=== PATIENT | male | born 1980 | race Caucasian/White ===

== ENCOUNTER → 2017-10-06 12:33 | Outpatient (POV) | payer MEDICARE, MEDICAID, SELFPAY | PROVIDERS: Visit Provider Nurse Practitioner Acute Care | DX: Z00.00 Encounter for general adult medical examination without abnormal findings (principal) ==

== ENCOUNTER 2017-11-17 08:32 | Day surgery (SDC) | payer MEDICARE, MEDICAID, SELFPAY ==
[2017-11-11 15:22] VITALS: BMI 25.8
[2017-11-17] VITALS (9 sets, daily range): BP systolic 108–135; BP diastolic 71–85; PULSE 63–82; RESP 16–18; TEMP 36.7; O2SAT 93–100
--- NOTE | 2017-11-17 09:51 | HMH.PROC ---
[facility] Procedure Note Procedure Note:: Upper Endoscopy Procedure Report: Esophagogastroduodenoscopy with cold biopsies Endoscopost: Felipe Upton II, MD Referring Physician: Gabriel Fields MD/Mervin Negron MD Date of Procedure: November 17, 2017 Equipment: Olympus GIF 180 standard upper endoscope Sedation: Fentanyl 100 mg IV/ Versed 5 mg IV Indications: Mr. Quiroga is a 36-year-old gentleman with epigastric abdominal pain and dyspepsia. He reports some bloating and burping. He reports generalized abdominal discomfort. He has a history of obstipation. He reports no dysphagia. He has a poor historian. His CAT scan of the abdomen and pelvis showed no acute abnormalities but there was some obstipation. His blood work showed normal hemoglobin 15.5 and hematocrit 49.2. Procedure: Prior to the procedure, a history and physical exam was performed, and patient's medications and allergies were reviewed. The risks, benefits and alternatives of the sedation and procedure were discussed with the patient. All questions were answered and informed consent was obtained. The patient was brought to the procedure room. Patient identification and proposed procedure were verified by the physician and the nurse. The patient was placed in a left lateral decubitus position and the scope was passed under direct vision. Throughout the procedure, the patient's blood pressure, pulse, and oxygen saturations were monitored continuously. The upper GI endoscopy was accomplished without difficulty. The patient tolerated the procedure well. Findings: The scope was passed directly into the upper esophagus and advanced to the third portion of the duodenum. The post bulbar duodenum and duodenal bulb were normal with normal mucosa and conniventes. There was mild duodenal lymphoid stasis. The scope was withdrawn through a normal duodenal bulb and pylorus into the stomach. There was very mild linear erythema of the antrum. There was atrophy of the body and fundus consistent with atrophic gastritis. Upon retroflexion there was no hiatal hernia. 2 biopsies were taken in the antrum and along the lesser curvature for histology to rule out gastritis and/or H pylori. Cold biopsies were taken from the body and fundus of the stomach along the greater curvature to rule out atrophic gastritis. The scope was then withdrawn into the esophagus. The remainder of the esophageal mucosa was normal. Impression: 1. Mild chronic atrophic gastritis with mild linear reactive antritis 2. Mild duodenal lymphoid stasis Plan: I do feel that the patient has functional dyspepsia. We will discuss additional treatment options. I would consider continuation of the fiber bowel regimen, dietary measures and Iberogast. I will follow up the biopsies. I would also consider checking iron and B12 levels because of the atrophic gastritis.
--- NOTE | 2017-11-17 09:55 | P.PCN_ITS ---
[facility] Procedure Note Procedure Note:: Upper Endoscopy Procedure Report: Esophagogastroduodenoscopy with cold biopsies Endoscopost: Felipe Upton II, MD Referring Physician: Gabriel Fields MD/Mervin Negron MD Date of Procedure: November 17, 2017 Equipment: Olympus GIF 180 standard upper endoscope Sedation: Fentanyl 100 mg IV/ Versed 5 mg IV Indications: Mr. Quiroga is a 36-year-old gentleman with epigastric abdominal pain and dyspepsia. He reports some bloating and burping. He reports generalized abdominal discomfort. He has a history of obstipation. He reports no dysphagia. He has a poor historian. His CAT scan of the abdomen and pelvis showed no acute abnormalities but there was some obstipation. His blood work showed normal hemoglobin 15.5 and hematocrit 49.2. Procedure: Prior to the procedure, a history and physical exam was performed, and patient' s medications and allergies were reviewed. The risks, benefits and alternatives of the sedation and procedure were discussed with the patient. All questions were answered and informed consent was obtained. The patient was brought to the procedure room. Patient identification and proposed procedure were verified by the physician and the nurse. The patient was placed in a left lateral decubitus position and the scope was passed under direct vision. Throughout the procedure, the patient's blood pressure, pulse, and oxygen saturations were monitored continuously. The upper GI endoscopy was accomplished without difficulty. The patient tolerated the procedure well. Findings: The scope was passed directly into the upper esophagus and advanced to the third portion of the duodenum. The post bulbar duodenum and duodenal bulb were normal with normal mucosa and conniventes. There was mild duodenal lymphoid stasis. The scope was withdrawn through a normal duodenal bulb and pylorus into the stomach. There was very mild linear erythema of the antrum. There was atrophy of the body and fundus consistent with atrophic gastritis. Upon retroflexion there was no hiatal hernia. 2 biopsies were taken in the antrum and along the lesser curvature for histology to rule out gastritis and/ or H pylori. Cold biopsies were taken from the body and fundus of the stomach along the greater curvature to rule out atrophic gastritis. The scope was then withdrawn into the esophagus. The remainder of the esophageal mucosa was normal. Impression: 1. Mild chronic atrophic gastritis with mild linear reactive antritis 2. Mild duodenal lymphoid stasis Plan: I do feel that the patient has functional dyspepsia. We will discuss additional treatment options. I would consider continuation of the fiber bowel regimen, dietary measures and Iberogast. I will follow up the biopsies. I would also consider checking iron and B12 levels because of the atrophic gastritis.
== END 2017-11-17 10:58 | disposition home or self-care (01) ==
LOC: OUTP 08:34
PROVIDERS: PCP Family Medicine; Visit Provider Internal Medicine Gastroenterology
PROC: 0DJ08ZZ Inspection of Upper Intestinal Tract, Via Natural or Artificial Opening Endoscopic (ICD-10-PCS; CPT 43235; principal; 2017-11-17 09:30)
DX: K29.40 Chronic atrophic gastritis without bleeding (principal)
CPT/HCPCS: 43239; 88305; 88342; 99152

== ENCOUNTER 2017-11-25 12:36 | Emergency (ER) | payer MEDICARE, MEDICAID, SELFPAY ==
[2017-11-25 12:48] VITALS: BP 103/72; PULSE 80; RESP 16; TEMP 36.5; O2SAT 100; BMI 25.8
[2017-11-25 13:09] LABS: Microscopic, Urine URINE MICROSCOPIC (MICROSCOPIC)
[2017-11-25 13:13] LABS: Appearance,Urine CLEAR (Clear); Bilirubin,Urine Negative (Negative); Blood, Urine Negative (Negative); Color,Urine YELLOW (Yellow); Glucose,Urine (UA) Negative (Negative); Ketones,Urine Negative (Negative); Leukocyte Esterase,Urine Negative (Negative); Nitrate,Urine Negative (Negative); Protein,Urine Negative (Negative); Specific Gravity, Urine 1.015 (1.005-1.030); Urobilinogen,Urine 0.2 EU/dl (0.2)
--- NOTE | 2017-11-25 13:16 | HMH.EDUROGM ---
ED Disposition Clinical Impression: Urinary frequency Disposition: Home, Self-Care Condition on Discharge: Fair Instructions: DI for Urinary Tract Infection (UTI), DI for Urinary Tract Infection in Children Additional Instructions: 1- drink plenty of water. 2- macrobid 100 mg po bid x 10 days 3- follow up with Dr Hay in AM 4- follow up with Dr Delcid the urologist in 1-2 weeks. Prescriptions: Nitrofurantoin Monohyd/M-Cryst [Macrobid 100 mg Capsule] 100 mg PO Q12H #20 cap Referrals: Gilson Hay MD [Primary Care Provider] - Jerzy Antoine MD [Staff Physician] - - Critical Care Critical Care Time: No Attestation: On 11/25/17, the high probability of a clinically significant, sudden or life threatening deterioration of the following system(s) required my full and direct attention, intervention and personal management. The time I documented below is in addition to time spent performing reported procedures but includes the following listed in this critical care notation. Medical Decision Making Vital Signs: 11/25/17 12:48 Temperature 97.7 F Temperature Source Oral Pulse Rate [Right Brachial] 80 Respiratory Rate 16 Blood Pressure [Right Arm] 103/72 Blood Pressure Mean [Right Arm] 82 Blood Pressure Source [Right Arm] Automatic Cuff Blood Pressure Position [Right Arm] Sitting 02 Sat by Pulse Oximetry 100 - Lab Data Lab Results 11/25/17 13:05: Urine Color Yellow, Urine Appearance Clear, Urine pH 7.0, Ur Specific [place] 1.015, Urine Protein Negative, Urine Glucose (UA) Negative, Urine Ketones Negative, Urine Blood Negative, Urine Nitrate Negative, Urine Bilirubin Negative, Urine Urobilinogen 0.2, Ur Leukocyte Esterase Negative, Urine WBC Occasional, Ur Squamous Epith Cells Occasional, Urine Bacteria 1+ 11/25/17 13:15: WBC 7.3, RBC 4.95, Hgb 14.8, Hct 45.2, MCV 91.4, MCH 30.0, MCHC 32.8, RDW 12.6, Plt Count 239, MPV 8.1, Neut % (Auto) 67.3, Lymph % (Auto) 26.0, [place] % (Auto) 5.5, Eos % (Auto) 1.1, Baso % (Auto) 0.1, Neut # (Auto) 4.9, Lymph # (Auto) 1.9, [place] # (Auto) 0.4, Eos # (Auto) 0.1, Baso # (Auto) 0.0 11/25/17 13:15: Sodium 139, Potassium 4.1, Chloride 106, Carbon Dioxide 27, Anion Gap 10.1, BUN 16, Creatinine 0.74, Estimated Creat Clear 159, Estimated GFR 120, Est GFR ( Amer) 145, Glucose 96, Calcium 8.3 L, Magnesium 1.5, Total Bilirubin 0.4, AST 15, ALT 19, Alkaline Phosphatase 119 H, Total Protein 7.9, Albumin 4.0, Globulin 3.9 H, Albumin/Globulin Ratio 1.0 L 11/25/17 13:15: Hemoglobin A1c 5.5 Result diagrams: 11/25/17 13:15 11/25/17 13:15 Orders (Tests/Meds): ORDERS Category Date Time Status Urine Culture Routine Micro 11/25/17 13:49 Ordered - Marco Inquiry Pt receiving controlled substance: No Marco was queried for this patient: No Medical Decision Making Narrative: Patient had normal vitals benign clinical examination and normal labs including a hemoglobin A1c of 5.5. [address] Woods for advise an evaluation. Dr. Antoine recommended antibiotic therapy and follow-up in 1-2 weeks with him. Male Urogenital HPI - General Chief complaint: Urogenital-Male Stated complaint: back pain,urinates a lot Mode of Arrival: Ambulatory Limitations: No Limitations Description of Symptoms (Recalled from ER Triage Doc. by RN): I got a kidney infection burning when urinating - History of Present Illness HPI Narrative: 36 years old white male patient of Dr. Hay, he presented to the ED complaining of increased frequency of urination at nighttime. 5 times for the past month. He denies having dysuria hematuria or flank pain. Denies having abdominal pain vomiting diarrhea. He denies having fever or chills. He seen Dr. Hay last 2 months of. Relieving factors: none Exacerbating factors: none - Related Data Sexually active: No Home Medications Medication Instructions Recorded Confirmed Buspirone HCl [Buspar 10mg tablet] 10 mg PO
--- NOTE | 2017-11-25 13:19 | ED_ITS ---
ED Disposition Clinical Impression: Urinary frequency Disposition: Home, Self-Care Condition on Discharge: Fair Instructions: DI for Urinary Tract Infection (UTI), DI for Urinary Tract Infection in Children Additional Instructions: 1- drink plenty of water. 2- macrobid 100 mg po bid x 10 days 3- follow up with Dr Hay in AM 4- follow up with Dr Delcid the urologist in 1-2 weeks. Prescriptions: Nitrofurantoin Monohyd/M-Cryst [Macrobid 100 mg Capsule] 100 mg PO Q12H #20 cap Referrals: Gilson Hay MD [Primary Care Provider] - Jerzy Antoine MD [Staff Physician] - - Critical Care Critical Care Time: No Attestation: On 11/25/17, the high probability of a clinically significant, sudden or life threatening deterioration of the following system(s) required my full and direct attention, intervention and personal management. The time I documented below is in addition to time spent performing reported procedures but includes the following listed in this critical care notation. Medical Decision Making Vital Signs: 11/25/17 12:48 Temperature 97.7 F Temperature Source Oral Pulse Rate [Right Brachial] 80 Respiratory Rate 16 Blood Pressure [Right Arm] 103/72 Blood Pressure Mean [Right Arm] 82 Blood Pressure Source [Right Arm] Automatic Cuff Blood Pressure Position [Right Arm] Sitting 02 Sat by Pulse Oximetry 100 - Lab Data Lab Results 11/25/17 13:05: Urine Color Yellow, Urine Appearance Clear, Urine pH 7.0, Ur Specific [place] 1.015, Urine Protein Negative, Urine Glucose (UA) Negative, Urine Ketones Negative, Urine Blood Negative, Urine Nitrate Negative, Urine Bilirubin Negative, Urine Urobilinogen 0.2, Ur Leukocyte Esterase Negative, Urine WBC Occasional, Ur Squamous Epith Cells Occasional, Urine Bacteria 1+ 11/25/17 13:15: WBC 7.3, RBC 4.95, Hgb 14.8, Hct 45.2, MCV 91.4, MCH 30.0, MCHC 32.8, RDW 12.6, Plt Count 239, MPV 8.1, Neut % (Auto) 67.3, Lymph % (Auto) 26.0 , [place] % (Auto) 5.5, Eos % (Auto) 1.1, Baso % (Auto) 0.1, Neut # (Auto) 4.9, Lymph # (Auto) 1.9, [place] # (Auto) 0.4, Eos # (Auto) 0.1, Baso # (Auto) 0.0 11/25/17 13:15: Sodium 139, Potassium 4.1, Chloride 106, Carbon Dioxide 27, Anion Gap 10.1, BUN 16, Creatinine 0.74, Estimated Creat Clear 159, Estimated GFR 120, Est GFR ( Amer) 145, Glucose 96, Calcium 8.3 L, Magnesium 1.5, Total Bilirubin 0.4, AST 15, ALT 19, Alkaline Phosphatase 119 H, Total Protein 7.9, Albumin 4.0, Globulin 3.9 H, Albumin/Globulin Ratio 1.0 L 11/25/17 13:15: Hemoglobin A1c 5.5 Result diagrams: 11/25/17 13:15 11/25/17 13:15 Orders (Tests/Meds): ORDERS Category Date Time Status Urine Culture Routine Micro 11/25/17 13:49 Ordered - Marco Inquiry Pt receiving controlled substance: No Marco was queried for this patient: No Medical Decision Making Narrative: Patient had normal vitals benign clinical examination and normal labs including a hemoglobin A1c of 5.5. [address] Woods for advise an evaluation. Dr. Antoine recommended antibiotic therapy and follow-up in 1-2 weeks with him. Male Urogenital HPI - General Chief complaint: Urogenital-Male Stated complaint: back pain,urinates a lot Mode of Arrival: Ambulatory Limitations: No Limitations Description of Symptoms (Recalled from ER Triage Doc. by RN): I got a kidney infection burning when urinating - History of Present Illness HPI Narrative: 36 years
[2017-11-25 13:24] LABS: Basophils % 0.1 % (0.1-2.0); Eosinophils # 0.1 K/mm3 (0.0-0.4); Eosinophils % 1.1 % (0.1-12.0); Hematocrit 45.2 % (42.0-52.0); Hemoglobin 14.8 g/dL (14.1-18.0); Lymphocytes # 1.9 K/mm3 (0.7-4.5); Mean Corpuscular HGB Conc 32.8 g/dL (31.8-35.4); Mean Corpuscular Volume 91.4 fl (80-94); Mean Platelet Volume 8.1 fl (7.4-10.4); Monocytes # 0.4 K/mm3 (0.1-1.0); Monocytes % 5.5 % (1.7-9.3); Neutrophils # 4.9 K/mm3 (1.8-7.8); Neutrophils % 67.3 % (37.0-80.0); Platelet Count 239 K/mm3 (142-424); Red Blood Count 4.95 M/mm3 (4.60-6.20); Red Cell Distribution Width 12.6 % (11.5-17.5); White Blood Count 7.3 K/mm3 (4.8-10.8)
[2017-11-25 13:32] LABS: Bacteria,Urine 1+ /lpf; Squamous Epithelial Cell,Urine Occasional #/hpf (0-5); WBC,Urine Occasional #/hpf (0-3)
[2017-11-25 13:37] LABS: Alanine Aminotransferase 19 U/L (12-78); Alkaline Phosphatase 119 U/L (46-116); Anion Gap 10.1 mEq/L (5-15); Aspartate Amino Transferase 15 U/L (15-37); Bilirubin,Total 0.4 mg/dL (0.2-1.0); Blood Urea Nitrogen 16 mg/dL (7-18); Calcium 8.3 mg/dL (8.5-10.1); Carbon Dioxide 27 mmol/L (21.0-32.0); Chloride 106 mmol/L (98-107); Creatinine Clearance Estimated 159 mL/min (0-300); Creatinine,Serum 0.74 mg/dL (0.70-1.30); Estimated Glomerular Filt Rate 120 ml/min (>60); GFR (African American) 145 ML/MIN (>60); Globulin 3.9 gm/dl (1.3-3.2); Glucose 96 mg/dL (74-106); Magnesium 1.5 mg/dL (1.4-2.2); Potassium 4.1 mmoL/L (3.5-5.1); Sodium 139 mmol/L (136-145); Total Protein,Serum 7.9 gm/dL (6.4-8.2)
[2017-11-25 13:39] LABS: Hemoglobin A1C 5.5 % (0.0-7.0)
[2017-11-25 14:22] VITALS: BP 129/83; PULSE 70; RESP 18; TEMP 36.7; O2SAT 96
== END 2017-11-25 14:23 | disposition home or self-care (01) ==
PROVIDERS: Emergency Provider Emergency Medicine; PCP Family Medicine
DX: R35.0 Frequency of micturition (principal); F17.210 Nicotine dependence, cigarettes, uncomplicated
CPT/HCPCS: 80053; 81001; 83036; 83735; 85025; 87086; 99282

== ENCOUNTER 2017-11-26 13:52 | Emergency (ER) | payer MEDICARE, MEDICAID, SELFPAY ==
[2017-11-26 14:02] VITALS: BP 140/78; PULSE 112; RESP 20; TEMP 36.8; O2SAT 98; BMI 21.9
--- NOTE | 2017-11-26 14:44 | HMH.EDUTC ---
[facility] [place] Clinical Impression: Diarrhea Qualifiers: Diarrhea type: unspecified type Qualified Code(s): R19.7 - Diarrhea, unspecified Disposition: Home, Self-Care Condition on Discharge: Good Instructions: Diarrhea Additional Instructions: ? Drink extra fluids with and between meals. If you have difficulty drinking, try very small amounts of water or suck on ice chips. ? Avoid fruit juices, as these do not replace minerals and can actually increase diarrhea. ? Children and adults can use sports drinks to replenish electrolytes. Younger children and infants should use products formulated for children, like oral rehydration solutions. ? Eat food in small amounts and let your stomach recover. ? Get lots of rest. You may feel tired or weak. ? Check with your doctor before taking medications or giving them to children. Never give aspirin to children or teenagers with a viral illness. This can cause Farshad syndrome, a potentially life-threatening condition. [place] diet make sure to replace fluids lost with diarrhea by drinking water, gatoraid or poweraid Prescriptions: Dicyclomine HCl [Bentyl 10mg capsule] 10 mg PO QID #20 cap Referrals: Gilson Hay MD [Primary Care Provider] - Forms: Work/School Release Time of Disposition: 15:19 Medical Decision Making - Medical Records Medical records reviewed: Yes: I reviewed the patient's medical records. Vital Signs: 11/26/17 14:02 Temperature 98.2 F Temperature Source Temporal Artery Scan Pulse Rate [Right] 112 H Respiratory Rate 20 Blood Pressure [Right Arm] 140/78 Blood Pressure Mean [Right Arm] 98 Blood Pressure Position [Right Arm] Sitting 02 Sat by Pulse Oximetry 98 Oxygen Delivery Method Room Air Orders (Tests/Meds): ED MEDICATIONS Discontinued Medications Generic Name Dose Route Start Last Admin Trade Name Freq PRN Reason Stop Dose Admin Dicyclomine HCl 10 mg 11/26/17 14:45 11/26/17 14:55 Bentyl 10mg Capsule PO 11/26/17 14:46 10 mg ONCE ONE Administration - Marco Inquiry Pt receiving controlled substance: No Marco was queried for this patient: No - Reevaluation(s) Time: 15:14 Reevaluation #1: Patient state that Bentyl helped with cramping and no longer having the cramping feeling State that he felt much better and ready to go home, no eppisodes of diarrhea since arrival [facility] [place] - General Stated complaint: stomach pain Mode of Arrival: Ambulatory Source of Information: Patient Limitations: No Limitations Description of Symptoms (Recalled from Triage Doc. by RN): ABD PAIN, DIARRHEA HEENT Symptoms (Recalled from RN notes): No Resp Symptoms (Recalled from RN notes): No Skin Symptoms (Recalled from RN notes): No MS Symptoms (Recalled from RN notes): No Functional Status (Recalled from RN notes): N - History of Present Illness Provider Complaint: Patient state that he woke up this morning having abdominal cramps and diarrhea State that he has had several eppisodes of diarrhea today State that at this time he has not had any vomiting. State that not having abdominal pain but having cramping just before he has diarrhea - Related Data Home Medications Medication Instructions Recorded Confirmed Buspirone HCl [Buspar 10mg tablet] 10 mg PO DAILY 11/25/17 11/25/17 Metoclopramide HCl [Reglan 5mg 5 mg PO ACHS 11/25/17 11/25/17 Tablet] Previous Rx's Medication Instructions Recorded Nitrofurantoin Monohyd/M-Cryst 100 mg PO Q12H #20 cap 11/25/17 [Macrobid 100 mg Capsule] Dicyclomine HCl [Bentyl 10mg 10 mg PO QID #20 cap 11/26/17 capsule] Allergies Allergy/AdvReac Type Severity Reaction Status Date / Time No Known Allergies Allergy Verified 11/11/17 15:23 - Worker's Comp Is this a Worker's Comp case?: No [facility] History I have reviewed the patient's past medical history: Yes 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: Denies:: Diabetes Mellitus Type 1, Diabetes Mellitus Type 2, Internal Pacemaker, Lung Disease
--- NOTE | 2017-11-26 14:48 | ED_ITS ---
[facility] [place] Disposition Clinical Impression: Diarrhea Qualifiers: Diarrhea type: unspecified type Qualified Code(s): R19.7 - Diarrhea, unspecified Disposition: Home, Self-Care Condition on Discharge: Good Instructions: Diarrhea Additional Instructions: ? Drink extra fluids with and between meals. If you have difficulty drinking, try very small amounts of water or suck on ice chips. ? Avoid fruit juices, as these do not replace minerals and can actually increase diarrhea. ? Children and adults can use sports drinks to replenish electrolytes. Younger children and infants should use products formulated for children, like oral rehydration solutions. ? Eat food in small amounts and let your stomach recover. ? Get lots of rest. You may feel tired or weak. ? Check with your doctor before taking medications or giving them to children. Never give aspirin to children or teenagers with a viral illness. This can cause [place]?s syndrome, a potentially life-threatening condition. [place] diet make sure to replace fluids lost with diarrhea by drinking water, gatoraid or poweraid Prescriptions: Dicyclomine HCl [Bentyl 10mg capsule] 10 mg PO QID #20 cap Referrals: Gilson Hay MD [Primary Care Provider] - Forms: Work/School Release Time of Disposition: 15:19 Medical Decision Making - Medical Records Medical records reviewed: Yes: I reviewed the patient's medical records. Vital Signs: 11/26/17 14:02 Temperature 98.2 F Temperature Source Temporal Artery Scan Pulse Rate [Right] 112 H Respiratory Rate 20 Blood Pressure [Right Arm] 140/78 Blood Pressure Mean [Right Arm] 98 Blood Pressure Position [Right Arm] Sitting 02 Sat by Pulse Oximetry 98 Oxygen Delivery Method Room Air Orders (Tests/Meds): ED MEDICATIONS Discontinued Medications Generic Name Dose Route Start Last Admin Trade Name Freq PRN Reason Stop Dose Admin Dicyclomine HCl 10 mg 11/26/17 14:45 11/26/17 14:55 Bentyl 10mg Capsule PO 11/26/17 14:46 10 mg ONCE ONE Administration - Marco Inquiry Pt receiving controlled substance: No Marco was queried for this patient: No - Reevaluation(s) Time: 15:14 Reevaluation #1: Patient state that Bentyl helped with cramping and no longer having the cramping feeling State that he felt much better and ready to go home, no eppisodes of diarrhea since arrival [facility] [place] HPI - General Stated complaint: stomach pain Mode of Arrival: Ambulatory Source of Information: Patient Limitations: No Limitations Description of Symptoms (Recalled from Triage Doc. by RN): ABD PAIN, DIARRHEA HEENT Symptoms (Recalled from RN notes): No Resp Symptoms (Recalled from RN notes): No Skin Symptoms (Recalled from RN notes): No MS Symptoms (Recalled from RN notes): No Functional Status (Recalled from RN notes): N - History of Present Illness Provider Complaint: Patient state that he woke up this morning having abdominal cramps and diarrhea State that he has had several eppisodes of diarrhea today State that at this time he has not had any vomiting. State that not having abdominal pain but having cramping just before he has diarrhea - Related Data Home Medications Medication Instructions Recorded Confirmed Buspirone HCl [Buspar 10mg tablet] 10 mg PO DAILY 11/25/17 11/25/17 Metoclopramide HCl [Reglan 5mg 5 mg PO ACHS 11/25/17 11/25/17
[2017-11-26 15:27] VITALS: BP 142/88; PULSE 100; RESP 20; TEMP 36.8
== END 2017-11-26 15:28 | disposition home or self-care (01) ==
PROVIDERS: Emergency Provider Nurse Practitioner; PCP Family Medicine
DX: R19.7 Diarrhea, unspecified (principal); R10.9 Unspecified abdominal pain
CPT/HCPCS: 99202

== ENCOUNTER 2017-12-02 14:12 | Emergency (ER) | payer MEDICARE, MEDICAID, SELFPAY ==
[2017-12-02 14:31] VITALS: BP 128/81; PULSE 90; RESP 20; TEMP 36.6; O2SAT 100
--- NOTE | 2017-12-02 14:54 | HMH.EDUTC ---
[facility] [place] Clinical Impression: Stuffy and runny nose Disposition: Home, Self-Care Condition on Discharge: Good Instructions: Common Cold, Allergic Rhinitis Additional Instructions: Follow up with family doctor if no improvement or worsening of symptoms in 12-24 hours Return if needed Continue on medication that you was prescribed for UTI Over the counter Motrin or Tylenol as needed for fever or pain Go straight to ER if any life threatening symptoms such as short of air, chest pain etc Prescriptions: Fluticasone Propionate [Flonase 50mcg nasal spray 16gm] 2 spr NS DAILY #1 bottle Referrals: Gilson Hay MD [Primary Care Provider] - As needed Time of Disposition: 15:32 Medical Decision Making - Medical Records Medical records reviewed: Yes: I reviewed the patient's medical records. Vital Signs: 12/02/17 14:31 12/02/17 15:08 Temperature 97.8 F 97.8 F Temperature Source Temporal Artery Scan Pulse Rate 90 Pulse Rate [Right] 90 Respiratory Rate 20 20 Blood Pressure 128/81 Blood Pressure [Right Arm] 128/81 Blood Pressure Mean [Right Arm] 96 Blood Pressure Source [Right Arm] Automatic Cuff Blood Pressure Position [Right Arm] Sitting 02 Sat by Pulse Oximetry 100 Oxygen Delivery Method Room Air - Lab Data Lab Results 12/02/17 14:54: Influenza Type A Ag Negative, Influenza Type B Ag Negative - Marco Inquiry Pt receiving controlled substance: No Marco was queried for this patient: No - Reevaluation(s) Time: 15:28 Reevaluation #1: Patient no changes no distress flu test negative Patient currently on Macrobid for UTI patient educated on flu symptoms and advised to follow up with family doctor if no improvement or worsening of symptoms [facility] [place] - General Stated complaint: congested soa Mode of Arrival: Ambulatory Source of Information: Patient Limitations: No Limitations Description of Symptoms (Recalled from Triage Doc. by RN): STATES HE HAS BRONCHITIS, SEEN IN ER YESTERDAY HEENT Symptoms (Recalled from RN notes): Yes Resp Symptoms (Recalled from RN notes): No Skin Symptoms (Recalled from RN notes): No MS Symptoms (Recalled from RN notes): No Functional Status (Recalled from RN notes): N - History of Present Illness Provider Complaint: Patient state that he thinks he has bronchitits. State that he is on medicine right now for UTI state that now he is having a runny nose and feels like he has had a fever but not sure because he hasn't checked it States that he wanted to come in and get checked state that he has a little cough but not coughing anything up denies chest congestion, denies soa - Related Data Home Medications Medication Instructions Recorded Confirmed Buspirone HCl [Buspar 10mg tablet] 10 mg PO DAILY 11/25/17 11/25/17 Metoclopramide HCl [Reglan 5mg 5 mg PO ACHS 11/25/17 11/25/17 Tablet] Previous Rx's Medication Instructions Recorded Nitrofurantoin Monohyd/M-Cryst 100 mg PO Q12H #20 cap 11/25/17 [Macrobid 100 mg Capsule] Dicyclomine HCl [Bentyl 10mg 10 mg PO QID #20 cap 11/26/17 capsule] Fluticasone Propionate [Flonase 2 spr NS DAILY #1 bottle 12/02/17 50mcg nasal spray 16gm] Allergies Allergy/AdvReac Type Severity Reaction Status Date / Time Penicillins Allergy Verified 12/02/17 14:35 - Worker's Comp Is this a Worker's Comp case?: No [facility] History I have reviewed the patient's past medical history: Yes 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: Denies:: Diabetes Mellitus Type 1, Diabetes Mellitus Type 2, Internal Pacemaker, Lung Disease, Seizures Comment: NONE Other Surgeries: Yes: Other (LEFT HAND). No: Pacemaker Amputation: No Fractures: No - Social History Smoking Status: Current every day smoker Tobacco Type: cigarettes # Packs/Day (cigarettes): 1 Alcohol Intake: never Substance Use Type: denies use Occupational Status: employed - Psychiatric History Expresses thoughts of harming self/others: None Suicide Plan Descriptio
[2017-12-02 15:08] VITALS: BP 128/81; PULSE 90; RESP 20; TEMP 36.6
[2017-12-02 15:23] LABS: UTC Influenza A Antigen Negative (Negative); UTC Influenza B Antigen Negative (Negative)
== END 2017-12-02 16:01 | disposition home or self-care (01) ==
PROVIDERS: Emergency Provider Nurse Practitioner; PCP Family Medicine
DX: J34.89 Other specified disorders of nose and nasal sinuses (principal); F17.210 Nicotine dependence, cigarettes, uncomplicated
CPT/HCPCS: 87804; 99202

== ENCOUNTER → 2018-02-09 09:18 | Outpatient (POV) | payer MEDICARE, MEDICAID, SELFPAY | PROVIDERS: Visit Provider Nurse Practitioner Acute Care | DX: Z00.00 Encounter for general adult medical examination without abnormal findings (principal) ==

== ENCOUNTER → 2018-06-10 14:26 | Outpatient (CLI) | payer MEDICARE, MEDICAID, SELFPAY ==
--- NOTE | 2018-06-10 14:35 | XR_ITS ---
XR ankle RT min 3V HISTORY: ITS.REASON: RT ANKLE SPRAIN ORDERING PHYSICIAN: SAUMYA Sifuentes PATIENT AGE: 37 years Comparison: None FINDINGS: No fracture or dislocation. No lytic or blastic change. There is normal mineralization.. The joint spaces are well-preserved. No significant degenerative/arthritic changes. No erosive changes evident. IMPRESSION: Negative ankle, no acute finding
== END ==
PROVIDERS: PCP Physician Assistant; Visit Provider Physician Assistant
DX: S93.401A Sprain of unspecified ligament of right ankle, initial encounter (principal)
CPT/HCPCS: 73610

== ENCOUNTER → 2018-07-23 10:39 | Outpatient (CLI) | payer MEDICARE, MEDICAID, SELFPAY ==
--- NOTE | 2018-07-23 10:44 | XR_ITS ---
XR foot wt bearing RT 3V HISTORY: ITS.REASON: pain ORDERING PHYSICIAN: Virginia Salmeron DPM PATIENT AGE: 37 years COMPARISON: None FINDINGS: There is mild hallux valgus and minimal pes planus. No fracture or dislocation or other significant anomalies evident. Mild soft tissue swelling noted at the medial aspect of the first metatarsophalangeal joint. IMPRESSION: Mild hallux valgus with mild pes planus
--- NOTE | 2018-07-23 10:44 | XR_ITS ---
XR foot wt bearing LT 3V HISTORY: ITS.REASON: pain ORDERING PHYSICIAN: Virginia Salmeron DPM PATIENT AGE: 37 years COMPARISON: 11/25/2016 FINDINGS: There is minimal hallux valgus with mild soft tissue swelling medially at the first metatarsophalangeal joint. There is flattening of the head of the second metatarsal as previously described. Borderline pes planus.. The joint spaces are well-preserved. No significant degenerative/arthritic changes. No erosive changes evident. IMPRESSION: Mild hallux valgus and borderline pes planus. No change flattened appearance of the head of the second metatarsal
== END ==
PROVIDERS: PCP Family Medicine; Visit Provider Podiatrist
DX: M79.673 Pain in unspecified foot (principal)
CPT/HCPCS: 73630

== ENCOUNTER → 2020-05-25 13:42 | Outpatient (CLI) | payer MEDICARE, SELFPAY | PROVIDERS: Visit Provider Family Medicine | DX: J06.9 Acute upper respiratory infection, unspecified (principal) ==

== ENCOUNTER → 2020-05-25 14:31 | Outpatient (CLI) | payer MEDICARE, OTHER, SELFPAY ==
--- NOTE | 2020-05-25 14:43 | XR_ITS ---
PROCEDURE: XR CHEST PORTABLE CLINICAL HISTORY: COVID TESTING COMPARISON: CR CXR CHEST(2 VIEWS-NOT PORTABLE) from 01/23/2016 CR CXR CHEST(2 VIEWS-NOT PORTABLE) from 03/06/2016 CR CXR CHEST(2 VIEWS-NOT PORTABLE) from 08/30/2016 FINDINGS: Mild cardiomegaly without failure. The lungs are clear without infiltrates, suspicious nodules, or pleural effusions. No acute bony abnormalities. IMPRESSION: No acute findings. Dictated by: Caesar Lucero MD 05/25/2020 17:03 Caesar Lucero MD in [place] 05/25/2020 17:03
[2020-05-25 15:25] LABS: Basophils % 0.2 % (0.1-2.0); Eosinophils # 0.1 K/mm3 (0.0-0.4); Eosinophils % 1.4 % (0.1-12.0); Hematocrit 47.9 % (42.0-52.0); Hemoglobin 16.1 g/dL (14.1-18.0); Lymphocytes # 1.6 K/mm3 (0.7-4.5); Lymphocytes % 21.2 % (10-50); Mean Corpuscular HGB Conc 33.5 g/dL (31.8-35.4); Mean Corpuscular Hemoglobin 31.3 pg (27.0-31.2); Mean Corpuscular Volume 93.4 fl (80-94); Mean Platelet Volume 8.4 fl (7.4-10.4); Monocytes # 0.4 K/mm3 (0.1-1.0); Monocytes % 4.5 % (1.7-9.3); Neutrophils # 5.6 K/mm3 (1.8-7.8); Neutrophils % 72.8 % (37.0-80.0); Platelet Count 242 K/mm3 (142-424); Red Blood Count 5.13 M/mm3 (4.60-6.20); Red Cell Distribution Width 13.2 % (11.5-17.5); White Blood Count 7.7 K/mm3 (4.8-10.8)
[2020-05-30 12:35] LABS: Covid-19 Nasal PCR Sendout Lex NOT DETECTED
== END ==
PROVIDERS: PCP Physician Assistant; Visit Provider Physician Assistant
DX: Z03.818 Encounter for observation for suspected exposure to other biological agents ruled out (principal)
CPT/HCPCS: 36415; 71045; 85025; U0004

== ENCOUNTER → 2020-12-19 16:16 | Outpatient (CLI) | payer MEDICARE, OTHER, SELFPAY ==
--- NOTE | 2020-12-19 16:24 | XR_ITS ---
PROCEDURE: XR FOOT WT BEARING LT 3V CLINICAL INDICATION: pain COMPARISON: CR FTR3 FOOT-RT-3 VIEWS from 12/21/2015 CR FTL3 FOOT-LT-3 VIEWS from 11/25/2016 CR FTWBR3 XR foot wt bearing RT 3V from 07/23/2018 CR FTWBL3 XR foot wt bearing LT 3V from 07/23/2018 FINDINGS: There is mild hallux valgus with minimal osteoarthritic change at the 1st MTP joint. 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 Pes planus. No acute fracture or dislocation. Other findings:None. 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
--- NOTE | 2020-12-19 16:24 | XR_ITS ---
PROCEDURE: XR FOOT WT BEARING RT 3V CLINICAL INDICATION: pain COMPARISON: CR FTR3 FOOT-RT-3 VIEWS from 12/21/2015 CR FTL3 FOOT-LT-3 VIEWS from 11/25/2016 CR FTWBR3 XR foot wt bearing RT 3V from 07/23/2018 CR FTWBL3 XR foot wt bearing LT 3V from 07/23/2018 FINDINGS: No fracture or dislocation. No lytic or blastic change. There is normal mineralization. Mild hallux valgus with mild bunion formation at the distal aspect of the 1st metatarsal. Other findings:Pes planus IMPRESSION: Overall no significant change pes planus and mild hallux valgus with bunion formation Dictated by: Caesar Lucero MD 12/19/2020 18:26 Caesar Lucero MD in [place] 12/19/2020 18:26
== END ==
PROVIDERS: PCP Internal Medicine Adolescent Medicine; Visit Provider Podiatrist
DX: M19.071 Primary osteoarthritis, right ankle and foot (principal); M19.072 Primary osteoarthritis, left ankle and foot; M77.41 Metatarsalgia, right foot; M77.42 Metatarsalgia, left foot
CPT/HCPCS: 73630

== ENCOUNTER 2021-04-02 14:30 | Outpatient (RCR) | payer MEDICARE, OTHER, SELFPAY | END 2021-04-02 14:35 | disposition home or self-care (01) | LOC: PT 14:30 | PROVIDERS: PCP Internal Medicine Adolescent Medicine; Visit Provider Podiatrist | DX: M79.671 Pain in right foot (principal); M79.672 Pain in left foot; M25.571 Pain in right ankle and joints of right foot; M25.572 Pain in left ankle and joints of left foot | CPT/HCPCS: 97163 ==

== ENCOUNTER 2021-09-10 14:06 | Emergency (ER) | payer MEDICARE, OTHER, SELFPAY ==
[2021-09-10 15:44] VITALS: BP 0/0; PULSE 0; RESP 0; TEMP -17.7; TEMP 0
== END 2021-09-10 15:46 | disposition left against medical advice (07) ==
LOC: UTC 14:08
PROVIDERS: Emergency Provider Nurse Practitioner Family; PCP Internal Medicine Adolescent Medicine
DX: Z53.21 Procedure and treatment not carried out due to patient leaving prior to being seen by health care provider (principal)

== ENCOUNTER 2021-09-20 14:31 | Emergency (ER) | payer MEDICARE, OTHER, SELFPAY ==
[2021-09-20 14:33] VITALS: BP 142/94; PULSE 99; RESP 18; TEMP 37.1; O2SAT 99; BMI 27.6
--- NOTE | 2021-09-20 14:51 | XR_ITS ---
PROCEDURE: XR KNEE LT 3V CLINICAL INDICATION: pain COMPARISON: No exams were available for comparison FINDINGS: No fracture or dislocation. No lytic or blastic change. There is normal mineralization. The joint spaces are well-preserved. No significant degenerative/arthritic changes. No erosive changes evident. Other findings:Small metallic density is present along the dorsal aspect of the distal thigh within the soft tissues IMPRESSION: Negative knee. 2 mm metallic density within the subcutaneous tissues of the posterior distal Dictated by: Caesar Lucero MD 09/20/2021 15:14 Caesar Lucero MD in [place] 09/20/2021 15:14
--- NOTE | 2021-09-20 15:31 | HMH.EDGENADL ---
ED Disposition Clinical Impression: Left knee pain Qualifiers: Chronicity: acute Qualified Code(s): M25.562 - Pain in left knee Disposition: Home, Self-Care Condition on Discharge: Good Instructions: DI for Knee Pain Additional Instructions: Ibuprofen for pain. Call your primary care doctor for follow-up. Prescriptions: Ibuprofen [Ibuprofen 800mg Tablet] 800 mg PO Q8HP PRN #15 tab PRN Reason: Moderate Pain Transmission Status: Pending to [facility] #[id number] Referrals: Pedro Fields MD [Primary Care Provider] - - Critical Care Critical Care Time: No Attestation: On 09/20/21, the high probability of a clinically significant, sudden or life threatening deterioration of the following system(s) required my full and direct attention, intervention and personal management. The time I documented below is in addition to time spent performing reported procedures but includes the following listed in this critical care notation. Medical Decision Making - Marco Inquiry Pt receiving controlled substance: No Vital Signs: 09/20/21 14:33 Temperature 98.7 F Temperature Source Oral Pulse Rate [Left Radial] 99 H Respiratory Rate 18 Blood Pressure [Right Arm] 142/94 H Blood Pressure Mean [Right Arm] 110 Blood Pressure Source [Right Arm] Automatic Cuff Blood Pressure Position [Right Arm] Sitting 02 Sat by Pulse Oximetry 99 Oxygen Delivery Method Room Air - Radiology Data #1 Image(s): Knee Image Reviewed: Yes I reviewed the patient's radiology image, Yes I have reviewed radiologist's interpretation PROCEDURE: XR KNEE LT 3V CLINICAL INDICATION: pain COMPARISON: No exams were available for comparison FINDINGS: No fracture or dislocation. No lytic or blastic change. There is normal mineralization. The joint spaces are well-preserved. No significant degenerative/arthritic changes. No erosive changes evident. Other findings:Small metallic density is present along the dorsal aspect of the distal thigh within the soft tissues IMPRESSION: Negative knee. 2 mm metallic density within the subcutaneous tissues of the posterior distal Dictated by: Caesar Lucero MD 09/20/2021 15:14 Caesar Lucero MD in [place] 09/20/2021 15:14 Medical Decision Narrative: Nonspecific prepatellar knee pain of uncertain duration with a normal examination and unremarkable x-ray. Patient advised of the presence of a soft tissue foreign body which I do not feel is related to his current complaint. Advise follow-up with his primary care provider. General Adult HPI - General Chief complaint: PAIN Stated complaint: left knee/leg pain Time Seen by Provider: 09/20/21 15:32 Mode of Arrival: Ambulatory Limitations: No Limitations Description of Symptoms (Recalled from ER Triage Doc. by RN): c/o left knee pain for 2 weeks, he was pushing buggies at work and he went in a pot hole and twisted knee. Denies falling or any other injury at this time. - History of Present Illness HPI narrative: The patient is a very inconsistent historian. Complains of left knee pain. The patient's reported time course of the pain is very inconsistent. He initially told me that it began hurting today. Later tells me that is been hurting for 2 to 3 days. When I investigate his urgent treatment center visit on 09/10/2021 to this facility for left knee pain he states that it actually has been hurting ever since then. He is unable to tell me how long it started hurting before that visit. He says yesterday he twisted his ankle which caused him to hurt his knee. He complains of pain over the patellar area. He is able to ambulate. No numbness or weakness or swelling. No treatment prior to arrival. - Related Data Home Medications Medication Instructions Recorded Confirmed omeprazole 40 mg capsule,delayed 40 mg PO cap 12/19/20 03/12/21 release Previous Rx's Medication Instructions Recorded diclofenac sodium 1 %
[2021-09-20 16:02] VITALS: BP 127/74; PULSE 79; RESP 18; TEMP 37.1; O2SAT 94
== END 2021-09-20 16:07 | disposition home or self-care (01) ==
PROVIDERS: Emergency Provider Emergency Medicine; PCP Family Medicine
DX: M25.562 Pain in left knee (principal); X50.1XXA Overexertion from prolonged static or awkward postures, initial encounter; F17.210 Nicotine dependence, cigarettes, uncomplicated; K21.9 Gastro-esophageal reflux disease without esophagitis
CPT/HCPCS: 73562; 99282

== ENCOUNTER → 2021-11-21 15:24 | Outpatient (CLI) | payer MEDICARE, OTHER, SELFPAY ==
--- NOTE | 2021-11-21 15:32 | XR_ITS ---
FINAL REPORT CLINICAL HISTORY: ALLEN KNEE PAIN, patient fell Krystian while pushing a cart, right knee pain. FINDINGS: RIGHT KNEE 3 views of the right knee were obtained. There is no acute fracture or dislocation. Visualized joint spaces are normally aligned. Soft tissues are unremarkable. IMPRESSION: No acute bony abnormality. Reviewed, Interpreted and Dictated by Naveen Dewitt MD Transcribed by Sonia Mcmillan Authenticated by Naveen Dewitt MD on 11/21/2021 04:19:38 PM [facility]
--- NOTE | 2021-11-21 15:32 | XR_ITS ---
FINAL REPORT CLINICAL HISTORY: ALLEN KNEE PAIN, pt fell Friday while pushing a cart, left knee pain. COMPARISON: September 20, 2021 FINDINGS: LEFT KNEE 3 views of the left knee were obtained. There is no acute fracture or dislocation. Visualized joint spaces are normally aligned. There is a persistent small metallic foreign body in the soft tissue of the distal left thigh that measures about 3 mm. IMPRESSION: No acute bony abnormality. Stable foreign body as described. Reviewed, Interpreted and Dictated by Naveen Dewitt MD Transcribed by Sonia Mcmillan Authenticated by Naveen Dewitt MD on 11/21/2021 04:19:25 PM [facility]
--- NOTE | 2021-11-21 15:32 | XR_ITS ---
FINAL REPORT CLINICAL HISTORY: JOINT PAIN, patient fell Krystian while pushing a cart, left ankle pain. FINDINGS: LEFT ANKLE Three views demonstrate no acute fracture or dislocation. The visualized joint spaces are normally aligned. The soft tissues are unremarkable. IMPRESSION: No acute bony abnormality. Reviewed, Interpreted and Dictated by Naveen Dewitt MD Transcribed by Sonia Mcmillan Authenticated by Naveen Dewitt MD on 11/21/2021 04:19:33 PM [facility]
== END ==
PROVIDERS: PCP Internal Medicine Adolescent Medicine; Visit Provider Internal Medicine Adolescent Medicine
DX: M17.0 Bilateral primary osteoarthritis of knee (principal); M25.572 Pain in left ankle and joints of left foot
CPT/HCPCS: 73562; 73610

== ENCOUNTER → 2021-12-28 12:53 | Outpatient (CLI) | payer MEDICARE, OTHER, SELFPAY ==
--- NOTE | 2021-12-28 13:28 | PC.NURSE ---
Attempted PFT on Pt. Pt was unable to understand what was being asked of him, made several attempts on different maneuvers. Due to the lack of understanding test aborted.
== END ==
PROVIDERS: PCP Internal Medicine Adolescent Medicine; Visit Provider Internal Medicine Adolescent Medicine
DX: R06.02 Shortness of breath (principal)

== ENCOUNTER 2022-01-03 16:00 | Outpatient (RCR) | payer MEDICARE, OTHER, SELFPAY | END 2022-01-03 16:05 | disposition home or self-care (01) | LOC: PT 16:00 | PROVIDERS: PCP Internal Medicine Adolescent Medicine; Visit Provider Orthopaedic Surgery | DX: M25.562 Pain in left knee (principal) | CPT/HCPCS: 97110; 97163; 97760 ==

== ENCOUNTER → 2022-01-30 11:57 | Outpatient (CLI) | payer MEDICARE, OTHER, SELFPAY | PROVIDERS: PCP Internal Medicine Adolescent Medicine; Visit Provider Internal Medicine Adolescent Medicine | DX: G47.33 Obstructive sleep apnea (adult) (pediatric) (principal); R06.83 Snoring | CPT/HCPCS: G0399 ==

== ENCOUNTER → 2022-02-11 17:27 | Outpatient (CLI) | payer MEDICARE, OTHER, SELFPAY ==
--- NOTE | 2022-02-11 17:39 | XR_ITS ---
PROCEDURE INFORMATION: Exam: XR Chest Exam date and time: 02/11/2022 5:39 PM Age: 41 years old Clinical indication: Shortness of breath; Additional info: SOB. Legs swelling. Smoker TECHNIQUE: Imaging protocol: XR of the chest. Views: 2 views. COMPARISON: CR XR CHEST PORTABLE 05/25/2020 2:45 PM FINDINGS: Lungs: Unremarkable. No consolidation. Pleural spaces: Unremarkable. No pleural effusion. No pneumothorax. Heart/Mediastinum: Unremarkable. No cardiomegaly. Bones/joints: Unremarkable. IMPRESSION: No acute findings.
[2022-02-11 18:01] LABS: MANUAL DIFFERENTIAL MANUAL DIFFERENTIAL (MANUAL DIFF)
[2022-02-11 18:21] LABS: Basophils # 0.2 K/mm3 (0-0.2); Eosinophils # 0.1 K/mm3 (0.0-0.4); Eosinophils % 1.3 % (0.1-12.0); Hematocrit 42.3 % (42.0-52.0); Hemoglobin 14.2 g/dL (14.1-18.0); Lymphocytes # 0.8 K/mm3 (0.7-4.5); Lymphocytes % 8.9 % (10-50); Mean Corpuscular HGB Conc 33.5 g/dL (31.8-35.4); Mean Corpuscular Hemoglobin 31.4 pg (27.0-31.2); Mean Corpuscular Volume 93.8 fl (80-94); Mean Platelet Volume 8.8 fl (7.4-10.4); Monocytes # 0.5 K/mm3 (0.1-1.0); Monocytes % 5.8 % (1.7-9.3); Platelet Count 209 K/mm3 (142-424); Red Blood Count 4.51 M/mm3 (4.60-6.20); Red Cell Distribution Width 13.5 % (11.5-17.5); White Blood Count 8.5 K/mm3 (4.8-10.8)
[2022-02-11 18:33] LABS: Alanine Aminotransferase 13 U/L (12-78); Albumin Level 4.3 g/dl (3.5-5.0); Albumin/Globulin Ratio 1.5 (1.1-1.8); Alkaline Phosphatase 113 U/L (38-126); Anion Gap 9.8 mEq/L (5-15); Aspartate Amino Transferase 33 U/L (17-59); Bilirubin,Total 0.1 mg/dl (0.2-1.3); Blood Urea Nitrogen 13 mg/dl (9-20); Calcium 8.7 mg/dl (8.4-10.2); Carbon Dioxide 31 mmol/L (22.0-30.0); Chloride 102 mmol/L (98-107); Estimated Glomerular Filt Rate 148 ml/min (>60); GFR (African American) 180 ML/MIN (>60); Globulin 2.9 g/dL (1.3-3.2); Glucose 98 mg/dl (74-100); Potassium 3.8 mmoL/L (3.5-5.1); Sodium 139 mmol/L (136-145); Total Protein,Serum 7.2 g/dl (6.3-8.2)
[2022-02-11 19:03] LABS: Thyroid Stimulating Hormone 0.53 uIU/mL (0.465-4.68)
[2022-02-11 20:11] LABS: Lymphocytes % 13 % (10-50); Monocytes % 4 % (2-9); Neutrophils % 83 % (42-76); Platelet Estimate Normal; Total Cells Counted 100
== END ==
PROVIDERS: PCP Nurse Practitioner Family; Visit Provider Nurse Practitioner Family
DX: R06.02 Shortness of breath (principal); R60.0 Localized edema
CPT/HCPCS: 36415; 71046; 80053; 83880; 84443; 85007; 85014; 85018; 85048; 85049

== ENCOUNTER 2022-06-13 13:21 | Emergency (ER) | payer OTHER, MEDICARE, SELFPAY ==
[2022-06-13 13:22] VITALS: BP 149/95; PULSE 102; RESP 18; TEMP 36.9; O2SAT 98; BMI 32.3
--- NOTE | 2022-06-13 14:13 | EXP.UTC ---
Discharge Plan Disposition Patient Disposition: Home, Self-Care Condition: Good Prescriptions Prescriptions: New cephalexin [cephalexin] 500 mg capsule 500 mg PO Q6H 10 Days Qty: 40 0RF mupirocin 2 % ointment 1 applic topical TID 7 Days Qty: 1 0RF No Action Stiolto Respimat 2.5-2.5 mcg/actuation mist IH Label Comments: INHALE 2 PUFFS BY MOUTH EVERY 24 HOURS furosemide 20 mg tablet 20 mg PO DAILY Label Comments: TAKE 1 TABLET BY MOUTH EVERY DAY diclofenac sodium [Voltaren] 1 % gel 4 g TOPICAL QID 30 Days Qty: 100 2RF Rx Instructions: apply to single knee, ankle, foot; for foot includes sole/toes/top of foot montelukast 10 mg tablet 10 mg PO PRN ibuprofen 800 MG tablet 800 mg PO Q8HP PRN (Reason: Moderate Pain) Qty: 15 0RF Referrals Follow up/Referrals: Blake Matamoros MD [Primary Care Provider] - See instructions Activity Restrictions/Add. Instructions Additional Instructions/Restrictions: Keep the wound clean and dry. Keep a dressing on it if you are going to be getting it dirty. Watch the for signs of infection, such as redness, swelling, drainage, fever. etc. Take tylenol or ibuprofen for pain. Follow up with your regular doctor for a wound recheck with in 2 to 3 days. GO TO THE ER FOR ANY WORSENING SYMPTOMS OR CONCERNS. Clinical Impressions Clinical Impression: Abrasion of left leg Stand Alone Forms Stand Alone Forms: Work/School Release Discharge ED Provider: Moreno Young [facility] General Stated complaint: Pallet fell on LT foot@work 06/10/22 Mode of Arrival: Ambulatory Source of Information: Patient Limitations: No Limitations Time Seen by Provider: 06/13/22 14:13 Description of Symptoms (Recalled from Triage Doc. by RN): c/o pallet falling on the back of his left leg at work, skin abrasion noted HEENT Symptoms (Recalled from RN notes): No Resp Symptoms (Recalled from RN notes): No Skin Symptoms (Recalled from RN notes): Yes MS Symptoms (Recalled from RN notes): No Functional Status (Recalled from RN notes): na History of Present Illness Provider Complaint: He had an empty wooden pallet to fall over and scrap the back of his left leg. He denies any other injury. He has an abrasion on the back of his left calf. His tetanus immunization is up to date. Related Data Home Medications Medication Instructions Recorded Confirmed montelukast 10 mg tablet 10 mg PO PRN 03/18/22 05/17/22 furosemide 20 mg tablet 20 mg PO DAILY 05/17/22 05/17/22 tiotropium 2.5 mcg-olodaterol 2.5 g inhalation 05/17/22 05/17/22 mcg/actuation mist for inhalation (Stiolto Respimat) Previous Rx's Medication Instructions Recorded diclofenac sodium 1 % topical gel 4 g topical QID pain 30 days #100 12/19/20 (Voltaren) grams ibuprofen 800 mg tablet 800 mg PO Q8HP PRN Moderate Pain 09/20/21 #15 tabs cephalexin 500 mg capsule 500 mg PO Q6H 10 days #40 caps 06/13/22 mupirocin 2 % topical ointment 1 applic topical TID 7 days #1 g 06/13/22 Allergies Allergy/AdvReac Type Severity Reaction Status Date / Time Penicillins Allergy Verified 05/17/22 11:25 Worker's Comp Is this a Worker's Comp case?: Yes Is this an [facility] Worker's Comp?: No [facility] Social History Smoking Status: Current every day smoker tobacco type: cigarettes packs per day: 1 alcohol intake: never substance use type: denies use current occupational status: employed Travel in the last 8 weeks: None household members: family caffeine: No ROS Obtained: Yes All systems reviewed & no additional complaints except as documented Constitutional Constitutional: Reports system reviewed and no additional complaints, except as documented, Denies chills and Denies fever(s) Eyes Eyes: Denies eye discharge ENT Ears, Nose, Mouth, and Throat: Denies dysphagia, Denies sore throat and Denies throat swelling Cardiovascular Cardiovascular: Denies chest pain and
[2022-06-13 14:48] VITALS: BP 149/95; PULSE 102; RESP 18; TEMP 36.9; O2SAT 98
== END 2022-06-13 14:48 | disposition home or self-care (01) ==
PROVIDERS: Emergency Provider Nurse Practitioner Family; PCP Internal Medicine Adolescent Medicine
DX: S80.812A Abrasion, left lower leg, initial encounter (principal); W22.8XXA Striking against or struck by other objects, initial encounter
CPT/HCPCS: 99212; G0463

== ENCOUNTER → 2022-10-15 15:06 | Outpatient (CLI) | payer MEDICARE, OTHER, SELFPAY ==
--- NOTE | 2022-10-15 15:12 | XR_ITS ---
FINAL REPORT CLINICAL HISTORY: foot pain COMPARISON: November 2020 FINDINGS: AP, oblique and lateral views of the left foot were obtained. There is no prior exam for comparison. There is stable flattening of the 2nd metatarsal head. There is no acute fracture or dislocation. There is mild degenerative disease. Soft tissues are normal. IMPRESSION: No acute osseous abnormality of the left foot. Reviewed, Interpreted and Dictated by Hayde Connors MD Transcribed by Lane Jalloh Authenticated and [facility]
--- NOTE | 2022-10-15 15:12 | XR_ITS ---
FINAL REPORT CLINICAL HISTORY: left ankle pain COMPARISON: October 2021 FINDINGS: AP, oblique, and lateral views of the left ankle were obtained. There is no prior exam for comparison. There is no fracture or dislocation. The ankle mortise is intact. Soft tissues are normal. IMPRESSION: No acute osseous abnormality of the left ankle. Reviewed, Interpreted and Dictated by Hayde Connors MD Transcribed by Lane Jalloh Authenticated and [facility]
== END ==
PROVIDERS: PCP Family Medicine; Visit Provider Podiatrist
DX: M79.672 Pain in left foot (principal); M25.572 Pain in left ankle and joints of left foot
CPT/HCPCS: 73610; 73630

== ENCOUNTER → 2022-11-05 15:27 | Outpatient (CLI) | payer MEDICARE, OTHER, SELFPAY ==
--- NOTE | 2022-11-05 15:27 | MR_ITS ---
FINAL REPORT CLINICAL HISTORY: left knee pain. LATERAL SIDED KNEE PAIN. KNEE INSTABILITY. FINDINGS: Multi planar MR imaging was performed of the left knee. The anterior and posterior cruciate ligaments are intact. The quadriceps and patellar tendons are intact. The medial and lateral menisci are intact without evidence of tear. The medial and lateral collateral ligaments appear intact. The medial and lateral retinacula appear intact. There is no evidence of bone marrow edema or osteochondral defect. No evidence of soft tissue inflammatory reaction. IMPRESSION: No evidence of significant internal derangement. Reviewed, Interpreted and Dictated by Naveen Dewitt MD Transcribed by Cindi Lawrence Authenticated and . [facility]
== END ==
PROVIDERS: PCP Family Medicine; Visit Provider Orthopaedic Surgery
DX: M25.562 Pain in left knee (principal)
CPT/HCPCS: 73721

== ENCOUNTER 2022-12-24 15:00 | Outpatient (RCR) | payer MEDICARE, OTHER, SELFPAY ==
--- NOTE | 2022-11-25 16:04 | HMH.PTOPEV ---
PT Outpatient Evaluation Rehab PT Outpatient Evaluation Start: 11/25/22 14:57 Freq: Status: Active Protocol: Document 11/25/22 14:57 SELINA (Rec: 11/25/22 16:03 SELINA [id number]) E-signed By Amanda Nathan, PT Outpatient Therapy Subjective History Subjective History Pt is a 41 y/o male that reports chronic L anterior knee pain with onset ~2 years ago. Pt reports MJ was stepping in a pot hole at [facility]. Pt reports constant symptoms since, no better or no worse. Pt reports pain is aggravated by bending/ squatting and traversing stairs. Pt denies swelling but reports he notices clicking/ popping with knee flex/ext and the knee often gives out with walking, denies falls. Pt reports intermittent paresthesia of the knee, calf and outside of the foot bilaterally as well. Pt had a L knee MRI performed at [facility] on 11/05/22 without significant findings. Pt reports he had an injection in the knee on 11/15 which provided temporary relief. Pt reports he is taking Naproxen as prescribed which helps with pain. Pt denies other comorbidities to report. 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 [employer] Chief Complaint Pain,Stiff,Clicks,Gives out/ Unstable Symptom Type Sharp Symptoms Relieved By Rest/Positioning Symptoms Aggravated By Bending/Stooping,Physical Activity,Twisting,Walking Prior Functional Limitations None Current Functional Limitations Dressing,Standing,Sitting, Squatting,Walking,Stairs, Bending/Stooping Symptom Description Intermittent Level of pain today (0-10) 10 Pain scale - at its best (0-10) 0 Pain scale - at its worst (0-10) 10 Hip/Knee Eval Gait Observation General Gait Pattern Observation Antalgic Gait,Decrease Weight Bear (L),Decrease Stride Lngth (L)
== END 2022-12-24 15:05 | disposition home or self-care (01) ==
LOC: PT 15:00
PROVIDERS: PCP Family Medicine; Visit Provider Orthopaedic Surgery
DX: M25.562 Pain in left knee (principal); M22.42 Chondromalacia patellae, left knee
CPT/HCPCS: 97110; 97140; 97163; 97530

== ENCOUNTER → 2023-01-08 12:55 | Outpatient (CLI) | payer MEDICARE, OTHER, SELFPAY | PROVIDERS: PCP Internal Medicine Adolescent Medicine; Visit Provider Nurse Practitioner Family | DX: R06.02 Shortness of breath (principal) | CPT/HCPCS: 93306 ==

== ENCOUNTER → 2023-08-04 15:07 | Outpatient (CLI) | payer MEDICARE, OTHER, SELFPAY ==
[2023-08-04 16:32] LABS: Occult Blood,Stool Negative (Negative)
[2023-08-09 17:37] LABS: Pancreatic Elastase, Fecal 107 (>200)
[2023-08-11 11:50] LABS: Calprotectin, Fecal 166 ug/g (0-120)
== END ==
LOC: LAB.DROPOF 15:09
PROVIDERS: PCP Internal Medicine Adolescent Medicine; Visit Provider Nurse Practitioner
DX: F79 Unspecified intellectual disabilities (principal); K92.1 Melena; R10.10 Upper abdominal pain, unspecified; R10.11 Right upper quadrant pain; R19.7 Diarrhea, unspecified; R09.02 Hypoxemia
CPT/HCPCS: 82272; 82656; 83993; G0328

== ENCOUNTER 2023-09-10 14:25 | Emergency (ER) | payer MEDICARE, OTHER, SELFPAY ==
[2023-09-10 15:00] VITALS: BP 131/86; PULSE 84; RESP 18; TEMP 36.8; O2SAT 98; BMI 35.6
--- NOTE | 2023-09-10 15:14 | EXP.UTC ---
Discharge Plan Disposition Patient Disposition: Home, Self-Care Condition: Good Prescriptions Prescriptions: No Action ketoconazole 2 % cream topical nystatin 100,000 unit/gram powder 1 applic topical PRN diclofenac sodium [Voltaren] 1 % gel 4 g TOPICAL QID 30 Days Qty: 100 2RF Rx Instructions: apply to single knee, ankle, foot; for foot includes sole/toes/top of foot sertraline 50 mg tablet 50 mg PO DAILY meloxicam 7.5 mg tablet 7.5 mg PO .COMPLEX Rx Instructions: 7.5 mg orally bid; naproxen 500 mg tablet 500 mg PO BID Qty: 60 2RF Referrals Follow up/Referrals: Pedro Fields MD [Primary Care Provider] - See instructions Activity Restrictions/Add. Instructions Additional Instructions/Restrictions: follow up with pcp for more work up if symptoms worsen retrun Clinical Impressions Clinical Impression: Urinary frequency Discharge ED Provider: Jones ([facility])[place] [facility] [place] [facility] [place] General Stated complaint: urinating an excessive amount Mode of Arrival: Ambulatory Source of Information: Patient Limitations: No Limitations Time Seen by Provider: 09/10/23 15:14 Description of Symptoms (Recalled from Triage Doc. by RN): frequent urination HEENT Symptoms (Recalled from RN notes): No Resp Symptoms (Recalled from RN notes): No Skin Symptoms (Recalled from RN notes): No MS Symptoms (Recalled from RN notes): No Functional Status (Recalled from RN notes): n/s History of Present Illness Provider Complaint: 42 yr old male presents for freq urination wants checked for uti. pt states no burning or urgency. Related Data Home Medications Medication Instructions Recorded Confirmed meloxicam 7.5 mg tablet 7.5 mg PO .COMPLEX 02/06/23 02/06/23 sertraline 50 mg tablet 50 mg PO DAILY 02/06/23 02/06/23 ketoconazole 2 % topical cream applic topical 07/31/23 07/31/23 nystatin 100,000 unit/gram topical 1 applic topical PRN 07/31/23 07/31/23 powder Previous Rx's Medication Instructions Recorded diclofenac sodium 1 % topical gel 4 g topical QID pain 30 days #100 12/19/20 (Voltaren) grams naproxen 500 mg tablet 500 mg PO BID #60 tabs 11/19/22 Allergies Allergy/AdvReac Type Severity Reaction Status Date / Time Penicillins Allergy Verified 09/10/23 15:13 Worker's Comp Is this a Worker's Comp case?: No [facility] Disclaimer: The information contained in this section may have been updated after the patient was seen, as this information can be updated by other users. 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) Smoking Status: Current every day smoker tobacco type: cigarettes packs per day: 1 alcohol intake: never substance use type: denies use current occupational status: employed Travel in the last 8 weeks: None household members: family caffeine: No ROS Obtained: Yes All systems reviewed & no additional complaints except as documented Constitutional Constitutional: Reports system reviewed and no additional complaints, except as documented and Reports as per HPI Eyes Eyes: Reports system reviewed and no additional complaints, except as documented and Reports as per HPI ENT Ears, Nose, Mouth, and Throat: Reports system reviewed and no additional complaints, except as documented Cardiovascular Cardiovascular: Reports system reviewed and no additional complaints, except as documented Respiratory Respiratory: Reports system reviewed and no a
[2023-09-10 15:15] LABS: POC Glucose,Bedside 110 (70-110)
[2023-09-10 15:34] VITALS: BP 131/86; PULSE 84; RESP 18; TEMP 36.8; O2SAT 98
[2023-09-10 15:34] LABS: Apearance,Urine Clear (Clear); Bilirubin,Urine Negative (Negative); Blood, Urine Negative (Negative); Color,Urine Yellow (Yellow); Glucose,Urine (UA) Negative (Negative); Ketones,Urine Negative (Negative); Protein,Urine Negative (Negative); Specific Gravity, Urine 1.025 (1.005-1.030)
[2023-09-10 15:35] LABS: UTC Leukocyte Esterase,Urine Negative (Negative); UTC Nitrate,Urine Negative (Negative); Urobilinogen,Urine 0.2 EU/dl (0.2)
== END 2023-09-10 15:34 | disposition home or self-care (01) ==
PROVIDERS: Emergency Provider Nurse Practitioner Family; PCP Family Medicine
DX: R35.0 Frequency of micturition (principal); F17.210 Nicotine dependence, cigarettes, uncomplicated
CPT/HCPCS: 81003; 82962; 99212; 99213; G0463

== ENCOUNTER 2023-12-18 09:49 | Day surgery (SDC) | payer MEDICARE, SELFPAY ==
[2023-12-15 12:45] VITALS: BMI 30.5
[2023-12-18 10:15] VITALS: BP 146/98; PULSE 92; RESP 17; TEMP 36.8; O2SAT 100
[2023-12-18] MEDS: LACTATED RINGERS 1000ML 1,000 ML 25 ML IV (10:15)
--- NOTE | 2023-12-18 10:43 | EXP.ANES.CKL ---
[facility] Disclaimer: The information contained in this section may have been updated after the patient was seen, as this information can be updated by other users. 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 Flat foot Allergies Intellectual disability Surgical History (Updated 12/18/23 @ 10:13 by Yolanda Stout RN) History of colonoscopy History of foot surgery Hx of hand surgery Family History (Reviewed 09/10/23 @ 15:15 by Leticia Goldman ([facility]), [employer]YWALL CONTRACTOR) Diabetes Coronary artery disease Anemia Sister Mother Father Kidney disease Father Heart attack Hypertension Father Thyroid disorder Sister Stroke Asthma Sister Social History Smoking Status: Current every day smoker tobacco type: cigarettes packs per day: 1 alcohol intake: never substance use type: denies use current occupational status: employed Travel in the last 8 weeks: None household members: family caffeine: No [facility] Anesthesia Checklist Patient Identification Patient Identification: Arm Band and Family Structural Data Admitted From: Home Planned Operative Procedure/s: Colonoscopy Consent for Planned Operative Procedure(s) Verified: Yes Verified Documents: Surgical Consent and History and Physical NPO Status Verified Time NPO: 00:00 Additional verifications Anesthesia Reactions: No Airway Assessment Mallampati Score:: Class II C-Spine Mobility Assessed: Yes TMJ Mobility Assessed: Yes Dentition: Poor Dentition Neurological Assessment Level of Consciousness: Awake and Alert Anesthesia Plan Anesthesia Risk discussed: Yes Anesthesia Plan: Verified ASA Class: III Anesthesia Type: MAC
[2023-12-18 11:04] VITALS: O2SAT 100
[2023-12-18 11:17] VITALS: BP 108/65; PULSE 86; RESP 16; TEMP 36.4; O2SAT 91
[2023-12-18 11:27] VITALS: BP 116/74; PULSE 96; RESP 16; O2SAT 92
[2023-12-18 11:37] VITALS: BP 122/84; PULSE 91; RESP 16; O2SAT 96
--- NOTE | 2023-12-18 11:45 | HMH.SCOPE ---
Procedure: Date: 12/18/23 Patient Date of :: 1980 Procedure Performed:: Diagnostic colonoscopy Indications:: Melena, rectal bleeding Performing Provider:: Brittanie Lawson MD Referring Provider:: Valentine Lawson APRN Sedation:: Propofol Procedure:: After placing the patient in the left lateral decubitus position, the colonoscopy was gently inserted into the rectum and under direct visualization advanced to the cecum which was identified by transillumination in the right lower quadrant, identification of the ileocecal valve, appendiceal orifice, and cecal strap. Color, texture, mucosa, and anatomy of the colon were carefully examined with the scope. Findings:: Anal canal: normal Rectum: normal Sigmoid colon: normal without polyps or inflammatory changes Descending colon: normal without polyps or inflammatory changes Splenic flexure: normal Transverse colon: normal without polyps or inflammatory changes Hepatic flexure: normal Ascending colon: normal without polyps or inflammatory changes Cecum: normal Terminal ileum: not visualized Impression: Normal colonoscopy. No evidence of GI bleeding. Recommendations:: Follow up examination in about TEN years or so, sooner if clinically indicated. Schedule EGD as previously ordered. Complications:: None Estimated blood obtained (mL): 0 Colonoscopy Component Colonoscopy Component Was a colonoscopy performed during today's procedure?: Yes Recommended follow up colonoscopy of at least 10 years?: Yes
[2023-12-18 11:47] VITALS: BP 128/83; PULSE 81; RESP 16; O2SAT 98
== END 2023-12-18 12:00 | disposition home or self-care (01) ==
PROVIDERS: PCP Internal Medicine Adolescent Medicine; Visit Provider Internal Medicine Gastroenterology
PROC: 0DJD8ZZ Inspection of Lower Intestinal Tract, Via Natural or Artificial Opening Endoscopic (ICD-10-PCS; CPT 45378; principal; 2023-12-18 11:00)
DX: K92.1 Melena (principal)
CPT/HCPCS: 45378

== ENCOUNTER 2024-01-15 08:47 | Day surgery (SDC) | payer MEDICARE, SELFPAY ==
[2024-01-13 12:19] VITALS: BMI 29.6
[2024-01-15 09:16] VITALS: BP 136/88; PULSE 79; RESP 18; TEMP 36.6; O2SAT 100
[2024-01-15] MEDS: LACTATED RINGERS 1000ML 1,000 ML 25 ML IV (09:23)
--- NOTE | 2024-01-15 09:49 | EXP.ANES.CKL ---
[facility] Disclaimer: The information contained in this section may have been updated after the patient was seen, as this information can be updated by other users. 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 Asthma Flat foot Allergies Intellectual disability Surgical History History of colonoscopy History of foot surgery Hx of hand surgery Family History Sister Anemia Asthma Thyroid disorder Mother Anemia Father Anemia Hypertension Kidney disease Other Coronary artery disease Diabetes Heart attack Stroke Social History Smoking Status: Current every day smoker tobacco type: cigarettes packs per day: 1 alcohol intake: never substance use type: denies use current occupational status: employed Travel in the last 8 weeks: None household members: family caffeine: No [facility] Anesthesia Checklist Patient Identification Patient Identification: Arm Band and Verbal (Name & ) Structural Data Admitted From: Home Planned Operative Procedure/s: EGD Consent for Planned Operative Procedure(s) Verified: Yes NPO Status Verified Time NPO: 00:00 Additional verifications Anesthesia Reactions: No Airway Assessment Mallampati Score:: Class IV C-Spine Mobility Assessed: Yes TMJ Mobility Assessed: Yes Dentition: Poor Dentition Neurological Assessment Level of Consciousness: Awake Hx Seizures: No Numbness or tingling in extremities: No Anesthesia Plan Anesthesia Risk discussed: Yes Anesthesia Plan: Verified ASA Class: III Anesthesia Type: MAC
[2024-01-15 09:59] VITALS: O2SAT 100
--- NOTE | 2024-01-15 10:11 | HMH.SCOPE ---
Procedure: Date: 01/15/24 Patient Date of :: 1980 Procedure Performed:: EGD & biopsies Indications:: Dyspepsia, GERD Performing Provider:: Brittanie Lawson MD Referring Provider:: Valentine Lawson APRN Sedation:: Propofol Procedure:: The gastroscope was gently passed through the incisoral orifice into the oral cavity and under direct visualization the esophagus was intubated. The endoscope was passed down the esophagus, through the stomach, and into the duodenum. Color, texture, mucosa, and anatomy of the esophagus, stomach, and duodenum were carefully examined with the scope. Findings:: Oropharynx: normal Esophagus: normal EG Junction: intact at 40 cm Cardia: normal Fundus: normal Body: normal, random biopsies obtained for evaluation of h.pylori Antrum: normal Duodenal bulb: normal Duodenum (second and third portion): normal Impression: Overall Normal EGD Specimens:: gastric Recommendations:: Symptomatic therapy as clinically indicated Avoid NSAIDs or ASA products Complications:: None Estimated blood obtained (mL): 0 Colonoscopy Component Colonoscopy Component Was a colonoscopy performed during today's procedure?: No
[2024-01-15 10:18] VITALS: BP 104/54; PULSE 88; RESP 16; TEMP 36.1; O2SAT 92
[2024-01-15 10:28] VITALS: BP 110/75; PULSE 84; RESP 16; TEMP 36.1; O2SAT 91
[2024-01-15 10:38] VITALS: BP 115/74; PULSE 79; RESP 16; TEMP 36.1; O2SAT 92
[2024-01-15 10:48] VITALS: BP 136/84; PULSE 77; RESP 16; TEMP 36.1; O2SAT 94
== END 2024-01-15 11:09 | disposition home or self-care (01) ==
PROVIDERS: PCP Internal Medicine Adolescent Medicine; Visit Provider Internal Medicine Gastroenterology
PROC: 0DJ08ZZ Inspection of Upper Intestinal Tract, Via Natural or Artificial Opening Endoscopic (ICD-10-PCS; CPT 43235; principal; 2024-01-15 10:00)
DX: R10.13 Epigastric pain (principal); K21.9 Gastro-esophageal reflux disease without esophagitis; K29.50 Unspecified chronic gastritis without bleeding
CPT/HCPCS: 43239

== ENCOUNTER 2024-01-27 14:00 | Outpatient (RCR) | payer MEDICARE, SELFPAY | END 2024-01-27 15:20 | disposition home or self-care (01) | LOC: PT 14:00 | PROVIDERS: Visit Provider Podiatrist Foot & Ankle Surgery | DX: L89.620 Pressure ulcer of left heel, unstageable (principal) | CPT/HCPCS: 97163 ==

== ENCOUNTER 2024-06-21 08:12 | Outpatient (CLI) | payer MEDICARE, SELFPAY ==
--- NOTE | 2024-06-21 08:15 | US_ITS ---
FINAL REPORT CLINICAL HISTORY: PAIN/DIARRHEA/DISTENSION FINDINGS: ULTRASOUND RIGHT UPPER QUADRANT Sonographic imaging of the right upper quadrant was obtained. The pancreas is partially obscured. There is increased echogenicity of the liver compatible with fatty infiltration. There is no evidence of gallstones. There is no gallbladder wall thickening. There is no biliary ductal dilatation. The common duct is normal at 3 mm. Limited images of the right kidney are unremarkable. IMPRESSION: Fatty liver. Reviewed, Interpreted and Dictated by Pedro Lara MD Transcribed by Rosalia Mendez Authenticated and [facility]
== END 2024-06-21 23:59 | disposition home or self-care (01) ==
LOC: RAD 08:13
PROVIDERS: PCP Nurse Practitioner Family; Visit Provider Nurse Practitioner Family
DX: R10.10 Upper abdominal pain, unspecified (principal); K52.9 Noninfective gastroenteritis and colitis, unspecified; R14.0 Abdominal distension (gaseous)
CPT/HCPCS: 76705

== ENCOUNTER 2024-07-06 13:15 | Emergency (ER) | payer MEDICARE, SELFPAY ==
[2024-07-06 13:16] VITALS: BP 152/85; PULSE 82; RESP 18; TEMP 37; O2SAT 98; BMI 34.3
--- NOTE | 2024-07-06 13:17 | HMH.EDGENADL ---
Discharge Plan Disposition Patient Disposition: Home, Self-Care Condition: Good Prescriptions Prescriptions: New methocarbamol 500 mg tablet 500 mg PO Q8H Qty: 90 0RF No Action nystatin 100,000 unit/gram powder 1 applic topical BID albuterol sulfate [Ventolin HFA] 90 mcg/actuation HFA aerosol inhaler inhalation Patient Comments: INHALE 2 PUFFS BY MOUTH EVERY 4 TO 6 HOURS NEEDED DIRECTED fluticasone propionate 110 mcg/actuation HFA aerosol inhaler inhalation cetirizine 10 mg tablet 10 mg PO Patient Comments: TAKE 1 TABLET BY MOUTH ONCE DAILY colestipol 1 gram tablet PO Patient Comments: TAKE 1 TABLET BY MOUTH TWICE DAILY fluticasone propionate 50 mcg/actuation spray,suspension intranasal Patient Comments: USE 2 SPRAY(S) IN EACH NOSTRIL ONCE DAILY diclofenac sodium [Voltaren] 1 % gel 4 g TOPICAL QID 30 Days Qty: 100 2RF Rx Instructions: apply to single knee, ankle, foot; for foot includes sole/toes/top of foot meloxicam 7.5 mg tablet 7.5 mg PO .COMPLEX Rx Instructions: 7.5 mg orally bid; Referrals Follow up/Referrals: Pedro Fields MD [Primary Care Provider] - See instructions Activity Restrictions/Add. Instructions Additional Instructions/Restrictions: I have prescribed muscle relaxers for your chest wall pain. As we discussed, your x-rays and labs did not show any abnormalities. Please return with any new or worsening symptoms. Clinical Impressions Clinical Impression: Chest wall discomfort Print Language Print Language: [place] Discharge ED Provider: Jani Dwyer Adult HPI General Chief complaint: PAIN Stated complaint: rib pain Time Seen by Provider: 07/06/24 13:16 History of Present Illness HPI narrative: Patient is a 43-year-old male with history of intellectual disability who presents today with right-sided rib pain. He states that symptoms were gradual in onset, constant, stable in course. No preceding trauma. He has had similar symptoms before. No shortness of breath. No productive cough. No sick contacts. No overt abdominal pain. No previous therapies. No pain elsewhere. History overall limited secondary to intellectual disability. Please note that above description of symptoms, in this electronic medical record under categorization of recalled from ER triage doctor by RN are reflective of an initial nursing assessment, however, is not reflective of my full history and physical exam that was personally taken and clarified. Consequentially, this preceding description of symptoms, which may include the patient's categorized chief complaint in the EMR, do not reflect my personal clinical impression, and the ultimate description of history of present illness and patient stated complaints should be deferred to this section of the note. Unless stated otherwise or congruent with this section of the note, additional signs, symptoms, or incongruence should be interpreted as inaccurate with my clinical impression. Related Data Home Medications ?Medication ?Instructions ?Recorded ?Confirmed meloxicam 7.5 mg tablet 7.5 mg PO .COMPLEX 02/06/23 06/22/24 nystatin 100,000 unit/gram topical 1 applic topical BID 07/31/23 06/22/24 powder albuterol sulfate 90 mcg/actuation inhalation 05/06/24 06/22/24 aerosol inhaler (Ventolin HFA) cetirizine 10 mg tablet 10 mg PO 05/06/24 06/22/24 fluticasone propionate 110 inhalation 05/06/24 06/22/24 mcg/actuation HFA aerosol inhaler colestipol 1 gram tablet g PO 06/22/24 06/22/24 fluticasone propionate 50 intranasal 06/22/24 06/22/24 mcg/actuation nasal spray,suspension Previous Rx's ?Medication ?Instructions ?Recorded diclofenac sodium 1 % topical gel 4 g topical QID pain 30 days #100 12/19/20 (Voltaren) grams methocarbamol 500 mg tablet 500 mg PO Q8H #90 tabs 07/06/24 Allergies Allergy/AdvReac Type Severity Reaction Status Date / Time Penicillins Allergy Rash Verified 06/22/24 14:00 [facility] Disclaimer: The information contained in this section may have been updated after the patient was seen, as this information can be updated by other users. 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 Asthma Flat foot Allergies Intellectual disability Congenital, sister is reportedly primary caregiver since the of their parents 5-6 years ago, denies established power of contracts attorney/guardianship. Surgical History History of colonoscopy History of foot surgery Hx of hand surgery left Family History Sister Anemia Asthma Thyroid disorder Mother Anemia Father Anemia Hypertension Kidney disease Other Coronary artery disease Diabetes Heart attack Stroke Social History Smoking Status: Current every day smoker tobacco type: cigarettes packs per day: 1 alcohol intake: never substance use type: denies use current occupational status: employed Travel in the last 8 weeks: None household members: family caffeine: No Other 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 Have you received the Flu Vaccine for this season: No Have you received the Pneumonia Vaccine: No ROS Obtained: Yes other As per HPI Physical Exam General General appearance: alert and in no apparent distress Head Head exam: atraumatic and normocephalic Eye Eye exam: Present normal appearance Neck Neck exam: Present normal inspection Chest Chest inspection: Present normal inspection and symmetric chest wall rise Respiratory Respiratory exam: Present normal lung sounds bilaterally; Absent respiratory distress Cardiovascular Cardiovascular exam: Present regular rate and normal rhythm Abdominal Exam Abdominal exam: Present soft Neurological Exam Neurological exam: Present alert and oriented X3 Psychiatric Psychiatric exam: Present normal affect and normal mood Skin Skin exam: Present warm and dry Other Other exam information: Right-sided chest wall tenderness to palpation, no overlying evidence of trauma. Medical Decision Making Medical Records Medical records reviewed: Yes I reviewed the patient's medical records. Screening: Per USPSTF and CDC recommendations, given the prevalence of disease in our region, it is our hospital?s policy to screen for HIV and viral Hepatitis for all patients aged 18 and over and those with ongoing risk factors. Marco Inquiry Pt receiving controlled substance: No Vital Signs: 07/06/24 13:16 07/06/24 15:42 Temperature 98.6 F 98.0 F Temperature Source Oral Oral Pulse Rate 66 Pulse Rate [Left Radial] 82 Respiratory Rate 18 18 Blood Pressure 121/84 Blood Pressure [Right Arm] 152/85 H Blood Pressure Mean [Right Arm] 107 Blood Pressure Source Automatic Cuff Blood Pressure Source [Right Arm] Automatic Cuff Blood Pressure Position Sitting Blood Pressure Position [Right Arm] Sitting 02 Sat by Pulse Oximetry 98 Oxygen Delivery Method Room Air Room Air Lab Data Lab Results 07/06/24 14:50: WBC 7.4, RBC 4.81, Hgb 15.1, Hct 44.0, MCV 91.4, MCH 31.3 H, MCHC 34.3, RDW 13.5, Plt Count 236, MPV 8.1, Neut % (Auto) 64.1, Lymph % (Auto) 26.9, [place] % (Auto) 7.3, Eos % (Auto) 1.0, Baso % (Auto) 0.7, Neut # (Auto) 4.7, Lymph # (Auto) 2.0, [place] # (Auto) 0.5, Eos # (Auto) 0.1, Baso # (Auto) 0.1, Sodium 140, Potassium 4.4, Chloride 102, Carbon Dioxide 31 H, Anion Gap 11.4, BUN 15, Creatinine 0.70, Estimated Creat Clear 175, Estimated GFR 123, Est GFR ( Amer) 149, Glucose 64 L, Calcium 9.3, Total Bilirubin 0.5, AST 35, ALT 19, Alkaline Phosphatase 118, Total Protein 8.3 H, Albumin 4.7, Globulin 3.6 H, Albumin/Globulin Ratio 1.3, Lipase 54 07/06/24 14:50 07/06/24 14:50 Orders (Tests/Meds): ED MEDICATIONS Discontinued Medications Generic Name Dose Route Start Last Admin Trade Name Freq PRN Reason Stop Dose Admin Ketorolac Tromethamine 15 mg 07/06/24 13:38 07/06/24 14:07 Ketorolac 30mg/Ml Vial IV 07/06/24 13:39 15 mg ONCE ONE Administration ORDERS Category Date Time Status XR ribs RT min 3V w CXR1V Stat Exams 07/06/24 13:38 Completed CBC w/Auto Diff [Complete Blood Count Auto Diff] Stat Lab 07/06/24 14:50 Completed CMP [Comprehensive Metabolic Panel] Stat Lab 07/06/24 14:50 Completed Lipase Stat Lab 07/06/24 14:50 Completed Medical Decision Narrative: Patient with history and exam per above presenting for evaluation of right-sided chest wall pain Diagnoses considered include fracture, referred pain, no clinical signs or symptoms to suggest anginal pain ED workup and treatment included: ED MEDICATIONS Discontinued Medications Generic Name Dose Route Start Last Admin Trade Name Freq PRN Reason Stop Dose Admin Ketorolac Tromethamine 15 mg 07/06/24 13:38 07/06/24 14:07 Ketorolac 30mg/Ml Vial IV 07/06/24 13:39 15 mg ONCE ONE Administration ORDERS Category Date Time Status XR ribs RT min 3V w CXR1V Stat Exams 07/06/24 13:38 Completed CBC w/Auto Diff [Complete Blood Count Auto Diff] Stat Lab 07/06/24 14:50 Completed CMP [Comprehensive Metabolic Panel] Stat Lab 07/06/24 14:50 Completed Lipase Stat Lab 07/06/24 14:50 Completed Labs were independently interpreted by me, significant for no acute findings Imaging was independently visualized and interpreted by me, significant for no acute findings Please refer to radiology report for full details. My clinical impression at this time is most consistent with chest wall pain. Patient reports complete improvement of his symptoms upon repeat evaluation. I discussed my clinical impression with patient and answered all questions. At this time, the evidence for any other entities in the differential is insufficient to warrant any further testing or ED observation. This was explained to the patient. The patient was advised that persistent or worsening symptoms require further evaluation. Critical Care Critical Care Time Critical Care Time: No
--- NOTE | 2024-07-06 13:38 | XR_ITS ---
FINAL REPORT CLINICAL HISTORY: Acute right sided rib pain. COMPARISON: February 11, 2022. FINDINGS: Chest: Heart and mediastinum are unremarkable. The lungs are clear. There is no pneumothorax. Ribs: 3 views of the right ribs demonstrate no acute, displaced rib fracture. IMPRESSION: No acute fracture and no pneumothorax. Reviewed, Interpreted and Dictated by Justus Lerner III, MD Transcribed by Codi Reddy PA-C Authenticated and . [facility]
[2024-07-06] MEDS: KETOROLAC 30MG/ML VIAL 15 MG IV (14:07)
[2024-07-06 15:03] LABS: Basophils # 0.1 K/mm3 (0-0.2); Basophils % 0.7 % (0.1-2.0); Eosinophils # 0.1 K/mm3 (0.0-0.4); Hemoglobin 15.1 g/dL (14.1-18.0); Lymphocytes % 26.9 % (10-50); Mean Corpuscular HGB Conc 34.3 g/dL (31.8-35.4); Mean Corpuscular Hemoglobin 31.3 pg (27.0-31.2); Mean Corpuscular Volume 91.4 fl (80-94); Mean Platelet Volume 8.1 fl (7.4-10.4); Monocytes # 0.5 K/mm3 (0.1-1.0); Monocytes % 7.3 % (1.7-9.3); Neutrophils # 4.7 K/mm3 (1.8-7.8); Neutrophils % 64.1 % (37.0-80.0); Platelet Count 236 K/mm3 (142-424); Red Blood Count 4.81 M/mm3 (4.60-6.20); Red Cell Distribution Width 13.5 % (11.5-17.5); White Blood Count 7.4 K/mm3 (4.8-10.8)
[2024-07-06 15:09] LABS: Albumin Level 4.7 g/dl (3.5-5.0); Chloride 102 mmol/L (98-107); Sodium 140 mmol/L (136-145)
[2024-07-06 15:10] LABS: Potassium 4.4 mmoL/L (3.5-5.1)
[2024-07-06 15:12] LABS: Alanine Aminotransferase 19 U/L (12-78); Albumin/Globulin Ratio 1.3 (1.1-1.8); Alkaline Phosphatase 118 U/L (38-126); Anion Gap 11.4 mEq/L (5-15); Aspartate Amino Transferase 35 U/L (17-59); Bilirubin,Total 0.5 mg/dl (0.2-1.3); Blood Urea Nitrogen 15 mg/dl (9-20); Carbon Dioxide 31 mmol/L (22.0-30.0); Creatinine Clearance Estimated 175 mL/min (50-200); Estimated Glomerular Filt Rate 123 ml/min (>60); GFR (African American) 149 ML/MIN (>60); Globulin 3.6 g/dL (1.3-3.2); Lipase 54 U/L (23-300); Total Protein,Serum 8.3 g/dl (6.3-8.2)
[2024-07-06 15:13] LABS: Calcium 9.3 mg/dl (8.4-10.2); Glucose 64 mg/dl (74-100)
[2024-07-06 15:42] VITALS: BP 121/84; PULSE 66; RESP 18; TEMP 36.7; O2SAT 96
== END 2024-07-06 15:42 | disposition home or self-care (01) ==
PROVIDERS: Emergency Provider Emergency Medicine; PCP Family Medicine
DX: R07.89 Other chest pain (principal)
CPT/HCPCS: 71101; 80053; 83690; 85025; 96374; 99283; J1885

== ENCOUNTER → 2024-07-13 20:21 | Outpatient (CLI) | payer MEDICARE, SELFPAY | PROVIDERS: PCP Internal Medicine Adolescent Medicine; Visit Provider Nurse Practitioner | DX: G47.33 Obstructive sleep apnea (adult) (pediatric) (principal) | CPT/HCPCS: 95810 ==

== ENCOUNTER 2024-08-18 09:20 | Day surgery (SDC) | payer MEDICARE, SELFPAY ==
[2024-08-18 09:34] VITALS: BP 118/77; PULSE 82; RESP 18; TEMP 36.1; O2SAT 96; BMI 35.9
--- NOTE | 2024-08-18 09:55 | P.PNANES_ITS ---
[facility] Disclaimer: The information contained in this section may have been updated after the patient was seen, as this information can be updated by other users. 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 Severe sleep apnea Acute right otitis media Ear drainage right Asthma Flat foot Allergies Intellectual disability Surgical History History of colonoscopy History of foot surgery Hx of hand surgery Family History Sister Anemia Asthma Thyroid disorder Mother Anemia Father Anemia Hypertension Kidney disease Other Coronary artery disease Diabetes Heart attack Stroke Social History Smoking Status: Current every day smoker tobacco type: cigarettes packs per day: 1 alcohol intake: never substance use type: denies use current occupational status: employed Travel in the last 8 weeks: None household members: family caffeine: No [facility] Anesthesia Checklist Patient Identification Patient Identification: Arm Band and Family Structural Data Admitted From: Home Planned Operative Procedure/s: Drug Induced Sleep Endoscopy Consent for Planned Operative Procedure(s) Verified: Yes Verified Documents: Surgical Consent and History and Physical NPO Status Verified Time NPO: 00:00 Additional verifications Anesthesia Reactions: No Hx Blood Transfusions: No Blood Transfusion Reaction: No Airway Assessment Mallampati Score:: Class II C-Spine Mobility Assessed: Yes TMJ Mobility Assessed: Yes Dentition: Poor Dentition Neurological Assessment Level of Consciousness: Awake, Alert and Appropriate Anesthesia Plan Anesthesia Risk discussed: Yes Anesthesia Plan: Verified ASA Class: III Anesthesia Type: MAC
[2024-08-18] MEDS: LIDOCAINE 1% 10ML MDV 10 ML (10:22)
[2024-08-18] MEDS: OXYMETAZOLINE NASAL SPRAY 0.05% 15ML 15 ML NS (10:22)
--- NOTE | 2024-08-18 10:29 | EXP.OP.NOTE ---
Date of procedure: 08/18/24 Pre-op Diagnosis:: obstructive sleep apnea Post-op Diagnosis:: same Procedure performed:: drug induced sleep endoscopy Surgeon:: Angelo Lucas MD Anesthesia: MAC Estimated blood loss (mL): 0 Operative findings:: The patient had complete concentric palatal collapse and as such is not a candidate for the hypoglossal nerve stimulator implant Operative note:: Patient was brought to the OR laid in a supine position and we slowly uptitrated a propofol drip until patient was snoring and intermittently apneic. Less than a cc of lidocaine mixed with Afrin was instilled into his nares. Flexible fiberoptic scope was then inserted. Patient had complete concentric collapse of his palate. He had complete lateral collapse of his oropharyngeal wall. He had moderate anterior posterior collapse of his base of tongue and epiglottis which is partially improved with jaw thrust maneuver. Scope was then removed and patient was turned back over to anesthesia to be awoken. Condition: stable Disposition: PACU Complications:: none
[2024-08-18 10:31] VITALS: BP 107/63; PULSE 75; RESP 18; TEMP 36.1; O2SAT 94
[2024-08-18 10:41] VITALS: BP 129/77; PULSE 74; RESP 18; O2SAT 94
[2024-08-18 10:51] VITALS: BP 125/80; PULSE 74; RESP 18; O2SAT 94
[2024-08-18 11:01] VITALS: BP 127/73; PULSE 72; RESP 18; O2SAT 94
== END 2024-08-18 11:01 | disposition home or self-care (01) ==
PROVIDERS: PCP Internal Medicine Adolescent Medicine; Visit Provider Student in an Organized Health Care Education/Training Program
PROC: (CPT 42975; principal; 2024-08-18 10:45)
DX: G47.33 Obstructive sleep apnea (adult) (pediatric) (principal)
CPT/HCPCS: 42975

== ENCOUNTER 2025-04-20 18:17 | Emergency (ER) | payer MEDICARE, MEDICAID, SELFPAY ==
--- OUTSIDE RECORDS SUMMARY | 2025-03-29 13:00 | XMS_ITS | Encounter Summary ---
Author Organization Healthcare Address [address] [place] [address] Care Team Providers Care Publications Writer Name Role Phone Gilson Hay MD Primary Care Provider [phone]- [phone] Reason for Visit * Consultation (Routine) - Closed Specialty Diagnoses / Procedures Referred By Ira ashley Referred To Contact Otolaryngology Diagnoses Tympanosclerosis, left ear Angelo Lucas MD [address] [facility] [address] [place] [address] Phone: tel: fax: Celeste Perry MD [address] [facility] [address] [place] [address] Phone: tel: fax: Referral ID Status Reason Start Date Expiration Date V isits Requested Visits Authorized [id number] Closed Specialty Services Required 03/24/2025 09/23/2026 1 1 Encounter Details Date Type Department Care Team (Latest Contact Info) Description 03/29/2025 1:00 PM EDT Office Visit [facility][NOTE 3] Audiology [address] [place] [address] Kim Gipson, AuD [address] [facility] [address] [place] [address] Mixed conductive and sensorineural hearing loss of right ear with restricted hearing of left ear (Primary Dx); Conductive hearing loss of left ear with restricted hearing of right ear; Dysfunction of both eustachian tubes Social History Tobacco Use Types Packs/Day Years Used Date Smoking Tobacco: Every Day Smokeless Tobacco: Never Alcohol Use Standard Drinks/Week Comments No 0 (1 standard drink = 0.6 oz pur e alcohol) Sex and Gender Information Value Date Recorded Sex Assigned at Not on file Legal Sex Male 8:54 PM EDT Gender Identity Not on file Sexual Orientation Not on file documented as of this encounter Miscellaneous Notes * Progress Notes - Kim Gipson AuD - 03/29/2025 1:00 PM EDT Images from the original note were not included. AUDIOLOGIC EVALUATION Referring Provider: Angelo Lucas MD HISTORY: Gilson Quiroga is a 44 y.o. male seen today for an audiologic evaluation. History is significant for recurrent otitis media bilaterally since childhood. Today he reported difficulties hearing out of both ears for the majority of his life. He has had around 4-5 sets of hearing aids fit by an outsider provider but he currently does not wear them due to discomfort. Today he denied tinnitus, dano lgia, aural fullness, and vertigo. Patient has a history of recreational noise exposure from listening to loud music without the use of hearing protection. No other significant audiologic symptoms orhistory were noted today. RESULTS: Otoscopy: Clear external auditory canals bilaterally Tympanograms: Reduced compliance bilaterally Audiogram: Test Method: Conventional Transducer: headphones Results: A comprehensive audiometric evaluation demonstrated a mild to moderate conductive hearing loss in the left ear and a mild to severe mixed hearing loss in the right ear. 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 CHECKER Agreement: Good Reliability: Good Recommendations: Patient following up with ENT Hearing test post-medical management Shruthi Sauer, [facility] Naturalization Examiner documented in this encounter Plan of Treatment Not on file documented as of this encounter Visit Diagnoses Diagnosis Mixed conductive and sensorineural hearing loss of right ear with restricted hearing of left ear- Primary Conductive hearing loss of left ear with restricted hearing of right ear Dysfunction of both eustachian tubes documented in this encounter Additional Health Concerns Assessment Noted Time A Body Mass Index follow-up plan has been documented for the patient 04/04/2025 2:03 PM EDT documented as of this encounter Care Teams Publications Writer Relationship Specialty Start Date End Date Gilson Hay MD [address] [place], [place] [address] PCP - General 02/09/21 documented as of this encounter
--- OUTSIDE RECORDS SUMMARY | 2025-03-29 13:50 | XMS_ITS | Encounter Summary ---
Author Organization Healthcare Address [address] [place] [address] Care Team Providers Care Patient Accounts Clerk Name Role Phone Gilson Hay MD Primary Care Provider [phone]- [phone] Reason for Referral * Imaging (Routine) - Pending Review Specialty Diagnoses / Procedures Referred By Ira ashley Referred To Contact Radiology Diagnoses Cholesteatoma of right ear Procedures CT Temporal Bones wo IV Contrast CT Temporal Bones wo IV Contrast Celeste Perry MD [address] [address] Phone: tel: fax: Referral ID Status Reason Start Date Expiration Date V isits Requested Visits Authorized [id number] Pending Review 03/29/2025 09/28/2026 1 1 Reason for Visit * Reason Comments Ear Problem Drainage from the ri ght ear, Encounter Details Date Type Department Care Team (Late st Contact Info) Description 03/29/2025 1:50 PM EDT Consult [facility] Otol[facility]ology [address] [place] [address] Celeste Perry MD [address] [address] Cholesteatoma of right ear (Primary Dx) Social History Tobacco Use Types Packs/Day Years [...] on file documented as of this encounter Last Filed Vital Signs Vital Sign Reading Time Taken Comments Blood Pressure 114/77 03/29/2025 1:47 PM EDT Pulse 80 03/29/2025 1:47 PM EDT Temperature - - Respiratory Rate - - Oxygen Saturation - - Inhaled Oxygen Concentration - - Weight 90.5 kg (199 lb 8.3 oz) 03/29/2025 1:47 P M EDT Height 167.6 cm (5' 6 ) 03/29/2025 1:47 PM EDT Body Mass Index 32.2 03/29/2025 1:47 PM EDT documented in this encounter Miscellaneous Notes * Progress Notes - Behzad Lyles MD - 03/29/2025 1:[address] Angelo Lucas, Thank you for requesting a consultation of your patient. My full consultation follows: It was a pleasure to evaluate Gilson Quiroga a pleasant 44 y.o. male who presents today for evaluation of his right otorrhea and left tympanosclerosis. He was initially seen by Dr. Lucas on 02/25/2025 for right sided otorrhea. Culture obtained and grew p. Mirabilis. This was treated with ototopical drops and abx. Seen in follow up on 03/18/2025 and found to have continued otorrhea and a L sided serous effusion with tympanosclerosis and thus was referred here for further management. He has not had any CT scans. He presents with his sister who helps provide history. They report a many year history of otologic issues, almost exclusively in the right ear. He states that he has essentially had daily drainage for as long as he can remember. He has intermittent mild pain. He has seen ENT doctors in the past butthey report he was only ever given antibiotics and drops. He has hearing aids but does not wear them. He reports a severe right sided hearing loss. The patient denies history of otologic surgery apart from a set of tube as a child. He denies excessive noise exposure, trauma to the ears, and ototoxic medications. Past medical history reviewed/non-contributory. Past surgical history reviewed/non-contributory. Past social history reviewed/non-contributory. Family history reviewed/non-contributory. Medications were reviewed. Allergies were reviewed. ROS: 14 point ROS performed and non-contributory other than that stated above. Physical Exam: Alert and oriented No apparent distress Facial function intact bilaterally HB 1/6. Facial sensation intact to light touch. Extraocular muscles intact No spontaneous or gaze-evoked nystagmus Symmetric palatal elevation Tongue protrudes midline with normal lateral movement External nose without significant lesions, nares patent on rhinoscopy No significant oral cavity or oropharyngeal lesions No cervical lymphadenopathy CV good cap refill Pulmonary symmetric chest rise Otomicroscopic exam Right: Pinna normal. Otomicroscopic exam: external auditory canal with white purulent drainage, tympanic membrane is retracted with erosion of the incus. Stapes not visible. There is a large pars flaccida retraction pocket with keratin debris and scutal erosion. Left: Pinna normal. Otomicroscopic exam: external auditory canal clear, tympanic membrane is intact with tympanosclerosis with retraction and an alisia effusion, pars flaccida retraction that is clean and dry Results: Audiometry : personally reviewed; 03/29/2025 Mild to moderate MHL on the left; Moderate to severe mixed hearing loss on the right R SRT 45/ WDS 90 L SRT 15/ WDS 100 Impression/Plan: R CSOM with erosion of the incus, stapes suprastructure, and scutum with attic cholesteatoma L sided tympanosclerosis, effusion, clean and dry pars flaccida retraction pocket R>L mixed hearing loss - I discussed the etiology and management options of cholesteatoma with the patient and his sister - Patient will require RIGHT tympanomastoidectomy +/- OCR. We discussed the risks, benefits, and expected recovery with the patient and he is agreeable to proceed. - Given the prolonged nature of his symptoms and my inability to see the depth of the pocket, I would like to investigate further with a CT Temporal bone scan prior to surgery - Will also plan for myringotomy and tympanostomy tube placement on the LEFT at the time of surgery - Advised dry ear precautions - RTC with CT temporal bone The patient has been counseled on tobacco cessation: Not Applicable Thank you very much for allowing me to participate in the care of this patient. If you have any questions, please do not hesitate to contact me. Sincerely, Celeste Perry MD FACS Service Assistant, Division of Otology, Neurotology, & Cranial Base Surgery, Department of Otolaryngology Head & Neck Surgery [facility] [phone] Cosigned by Celeste Perry MD at 04/04/2025 2:03 PM EDT Associated attestation - Celeste Perry MD - 04/04/2025 2:03 PM EDT The patient was seen and examined with the resident. I was present for the entirety of the procedure. I agree with the above findings and plan. documented in this encounter Plan of Treatment Scheduled Orders Name Type Priority Associated Diagnoses Orde r Schedule CT Temporal Bones wo IV Contrast Imaging Routine Cholesteatoma of right ear Expected: 03/29/2025 (Approximate), Expires: 09/30/2026 documented as of this encounter Visit Diagnoses Diagnosis Cholesteatoma of right ear- Primary documented in this encounter Additional Health Concerns Assessment Noted Time A Body Mass Index follow-up plan has been documented for the patient 04/04/2025 2:03 PM EDT documented as of this encounter Care Teams Patient Accounts Clerk Relationship Specialty Start Date End Date Gilson Hay MD [address] [place] [address] PCP - General 02/09/21 documented as of this encounter
[2025-04-20] VITALS (9 sets, daily range): BP systolic 109–146; BP diastolic 67–86; PULSE 79–106; RESP 18–20; TEMP 36.6–36.7; O2SAT 95–97; BMI 31.9
--- OUTSIDE RECORDS SUMMARY | 2025-04-20 18:30 | XMS_ITS | Data Portability ---
Author Organization [facility] ADI Yo MOUSIE CLOSED Address [address] [facility] [address] [place] [address] Care Team Providers Care Padding Machine Operator Name Role Phone ROSALIA HARDWICK Primary Care Provider Assessment No assessment recorded. Plan of Treatment Reminders Order Date Submit Date Provider Last Modified By Organization Details Last Modified Time Details Appointments None recorded. Lab culture, bacterial - right ear 2024 025 [facility], [address] [place] [address], [phone], 5 10:40:36 Referral None recorded. Procedures None recorded. Surgeries None recorded. Imaging None recorded. Medication Orders amoxicillin 875 mg-potassiu m clavulanate 125 mg tablet 2024 025 [facility] [address], [address] [place] [address], [address], 5 05:01:54 Ciprodex 0.3 %-0.1 % ear drops,suspe nsion 2024 025 [facility] [address], [address] [place] [address], [id number], 5 16:55:39 cefdinir 300 mg capsule 2024 025 [facility] [address], [address] [place] [address], [id number], 5 05:02:17 Patient TargetsNo targets recorded. Patient Instructions Encounter Date Encounter Id Patient Instructions Last Modified By Organization Details Last Modified Time 02/25/2025 [id number] 1. Ordered routi ne culture of ear 2. Rx-ciprofloxacin 0.3 %-dexamethasone 0.1 % ear drops,suspension 3 drops into affected ear(s) BID 3. cefdinir (Omnicef) 300mg Take 1 tablet PO BID X 7days 4. F/u 2 weeks [email or web address] Not available 02/25/2025 16:56:06 right otorrhea, possible perf with granulation tissue on TM will try to get [place] [facility] records start drops and oral antibiotics dry ear precautions culture take, f/u results opposite ear has evidence of long standing ETD likely contributing Not available 02/28/2025 14:02:53 03/18/2025 [id number] 1. Bilateral Binocular microscopy performed in office today. Full risks, complications, and benefits of non-operative intervention have been thoroughly discussed. Understanding was expressed, informed consent given, and we will proceed with the discussed treatment plan. There were no questions for me at the end of the office visit. 2. Rx - Start amoxicillin 875 mg-potassium clavulanate 125 mg tablet 1 tablet every 12 hours for 21 days [email or web address] Not available 03/18/2025 16:01:39 persistent right otorrhea, improved but still there, despite culture directed antibiotics and drops underlying severe ETD bilaterally likely contributing right TM posterior retraction pocket concerning for possible cholesteatoma will send in prolonged antibiotic course and cont ciprodex ggt will refer to neuro/otology to assess surgical candidacy [id number] Not available 03/19/2025 16:17:44 Reason for Referral None Reported. Results Created Date Observation Date Name Description Value Unit Range Abnormal Flag Note LastModifiedBy Organization Detail LastModifiedTime 02/26/20 25 02/25/2025 CULTU RE, ROUTI NE proteus mirabilis Organi sm: Proteu s mirabi lis Not Available [facility] [address] [facility], [place], [address], 02/28/2025 09:31:21 02/26/20 25 02/28/2025 CULTU RE, ROUTI NE culture, routine abnormal ISOLA TE #1 Many Proba ble Gram Negat josé Bacil asaf. ID and sensi tivit y in progr ess. See [place] te Resul t(s) Below Prote us mirab ilis Not Available [facility] [address] [place] [address], [phone], 02/28/2025 09:31:21 02/26/20 25 02/28/2025 CULTU RE, ROUTI NE amox/K clav'ate(C) <=8/4 ug/mL susceptib le Not Available [facility] [address] [place] [address], [phone], 02/28/2025 09:31:21 02/26/20 25 02/28/2025 CULTU RE, ROUTI NE ampicillin <=8 ug/mL susceptib le Not Available [facility] [address] [place] [address], [phone], 02/28/2025 09:31:21 02/26/2002/28/2025 CULTU RE, ROUTI NE cefazolin <=2 ug/mL susceptib le Not Available [facility] [address] [place] [address], [phone], 02/28/2025 09:31:21 02/26/2002/28/2025 CULTU RE, ROUTI NE ceftazidime <=1 ug/mL susceptib le Not Available [facility] [address] [place] [address], [phone], 02/28/2025 09:31:21 02/26/20 25 02/28/2025 CULTU RE, ROUTI NE ceftriaxone <=1 ug/mL susceptib le Not Available [facility] [address] [place] [address], [address], 02/28/2025 09:31:21 02/26/20 25 02/28/2025 CULTU RE, ROUTI NE cefuroxime <=4 ug/mL susceptib le Not Available [facility] [address] [place] [address], [address], 02/28/2025 09:31:21 02/26/20 25 02/28/2025 CULTU RE, ROUTI NE ciprofloxaci n <=0.25 ug/mL susceptib le Not Available [facility] [address] [place] [address], [address], 02/28/2025 09:31:21 02/26/20 25 02/28/2025 CULTU RE, ROUTI NE gentamicin <=4 ug/mL susceptib le Not Available [facility] [address] [place] [address], [address], 02/28/2025 09:31:21 02/26/2002/28/2025 CULTU RE, ROUTI NE levofloxacin <=0.5 ug/mL susceptib le Not Available [facility] [address] [place] [address], [phone], 02/28/2025 09:31:21 02/26/2002/28/2025 CULTU RE, ROUTI NE piperacillin /karsten <=16 ug/mL susceptib le Not Available [facility] [address] [place] [address], [phone], 02/28/2025 09:31:21 02/26/2002/28/2025 CULTU RE, ROUTI NE tobramycin <=2 ug/mL susceptib le Not Available [facility] [address] [place] [address], [address], 02/28/2025 09:31:21 02/26/2002/28/2025 CULTU RE, ROUTI NE trimeth/sulf a <=2/38 ug/mL susceptib le Not Available [address], [address], 02/28/2025 09:31:21 Result Notes None recorded. Procedures Surgical History Date Name Laterality Status Provider Name and Address Organization Details Recorded Time Binocular Microscopy completed FERN REYNOLDS MD [address] [place] [address], [phone], [facility] 03/19/2025 16:16:19 Binocular Microscopy completed FERN REYNOLDS MD [address] [place] [address], [phone], [facility] 02/28/2025 14:01:44 Imaging Results None recorded. Procedure Notes None recorded. Medical Equipment None Reported. Allergies No known drug allergies Medications Name Sig Start Date Stop Date Status Note LastModified by Organization Details LastModified Time methocarbam ol 500 mg tablet TAKE 1 TABLET BY MOUTH EVERY 8 HOURS active Not Available Not Available No t Available cetirizine 10 mg tablet TAKE 1 TABLET BY MOUTH ONCE DAILY active Not Available Not Available No t Available famotidine 20 mg tablet TAKE 1 TABLET BY MOUTH TWICE DAILY active Not Available Not Available No t Available montelukast 10 mg tablet TAKE 1 TABLET BY MOUTH ONCE DAILY AT NIGHT active Not Available Not Available No t Available cefdinir 300 mg capsule Take 1 capsule twice a day by oral route for 7 days. 03/11 completed Not Available Not Available Not Available fluticasone propionate 50 mcg/actuati on nasal spray,suspe nsion USE 2 SPRAY(S) IN EACH NOSTRIL ONCE DAILY active Not Available Not Available No t Available colestipol 1 gram tablet TAKE 1 TABLET BY MOUTH TWICE DAILY active Not Available Not Available No t Available amoxicillin 875 mg-potassiu m clavulanate 125 mg tablet Take 1 tablet every 12 hours by oral route for 21 days. 04/15 completed Not Available Not Available Not Available Ventolin HFA 90 mcg/actuati on aerosol inhaler INHALE 2 PUFFS BY MOUTH EVERY 4 TO 6 HOURS NEEDED DIRECTED active Not Available Not Available No t Available ciprofloxac in 0.3 %-dexametha sone 0.1 % ear drops,suspe nsion INSTILL 3 DROPS INTO LEFT EAR TWICE DAILY FOR 14 DAYS active Not Available Not Available No t Available Vitals Date Recorded Body height Body mass index (BMI) Body weight Body temperature Heart rate Systolic And Diastolic Provider Name and Address Organization Details Last Updated DateTime 175.26 cm 30 kg/m2 04686.2 5 g 97.8 [degF] 83 /min 149/92 mm[Hg] Adela Nel [facility] 16:13:42 Date Recorded Body height Body mass index (BMI) Body weight Body temperature Heart rate Systolic And Diastolic Provider Name and Address Organization Details Last Updated DateTime 175.26 cm 29.5 kg/m2 16110.6 8 g 97.2 [degF] 106 /min 133/88 mm[Hg] Ann Ji [facility] 15:43:35 Social History None recorded. Functional Status None recorded. Mental Status None recorded. Family History Nothing Reported. 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 No medical history recorded. Past Encounters Encounter ID Performer Location Encounter Start Date Encounter Closed Date Diagnosis/Indication Diagnosis SNOMED-CT Code Diagnosis ICD10 Code Diagnosis Note [id number] MD JACIEL [facility] [address] [place] [address] 02/25/2025 15:58:49 02/28/2025 07:38:36 Deviated nasal septum 266273673 J34.2 Otorrhea of right ear 10 90138059 294640 H92.11 Tympanoscl erosis of left middle ear 5484963958 5332827 H74.02 Chronic se gaston otitis media of right ear 190623978 H65.21 [id number] MD JACIEL BL[facility]CO [facility] [address] [place] [address] 03/18/2025 15:29:48 03/18/2025 16:08:54 Deviated nasal septum 723664277 J34.2 Otorrhea of right ear 10 77486583 968451 H92.11 culture with gant sensitive proteus mirabilis Tympanoscl erosis of left middle ear 8311459578 8283173 H74.02 Chronic se gaston otitis media of right ear 965848146 H65.21 Chronic se [place]on otitis media of left ear 977706055 H65.22 Health Concerns Section Related Observation LastModified by Organization Detai ls LastModified Time None Recorded Concern Status LastModified by Organization Details LastModified Time None Recorded Advance Directives Directive None Recorded Payers Insurance Date Sequence Insurance Name Policy Number Policy Interiano Covered Member ID Interiano Member ID Guarantor Name 02/25/2025 1 [employer] (MEDICAID REPLACEMENT - HMO) MEDICAID Gilson Quiroga [id number] Gilson Wang Junaid 03/24/2025 1 [facility] (MEDICARE REPLACEMENT/AD VANTAGE - HMO) [id number] Gilson Wang Junaid [id number] Gilson Quiroga Notes Date Note Type Note Provider Name and Address Organization Details Recorded Time 02/25/2025 text/html Gilsno comes in today for an evaluation of otorrhea.- Hole in the ear, drainage- He has had hearing aids but does not do well with them FERN REYNOLDS MD [address] [place] [address], [phone], [facility] 02/28/2025 14:03:03 03/18/2025 text/html Chief Complaint: Otorrhea of Ad (Proteus mirabilis infection) f/uLocation: AdQuality: improved after ciprodex drops and oral abx, but persistsContext:Modify ing Factors: dry ear precautionsAssoc signs/symptoms: FERN REYNOLDS MD [address] [place] [address], [phone], [facility] 03/19/2025 16:17:57
--- OUTSIDE RECORDS SUMMARY | 2025-04-20 18:30 | XMS_ITS | Referral Summary ---
Author Organization [facility] ([place], [place], [place], [place]) Address [address] [place] [address] Care Team Providers Care Government Auditor Name Role Phone Blake Matamoros MD Primary Care Provider + [phone] Allergies Active Allergy Reactions Criticality Noted Date Comments Penicillins Nausea Only 09/10/2023 Per pt, makes him sick to his stomach Medications meloxicam (MOBIC) 15 MG tablet Take 1 tablet (15 mg total) by mouth daily. 09/02/2023 Active cholecalciferol , vitamin D3, 1,250 mcg (50,000 unit) capsule Take 1 capsule (50,000 Units total) by mouth once a week. 10/13/2023 Active Active Problems Problem Noted Date Diagnosed Date Preop examination 10/20/2023 DIANE (obstructive sleep apnea) 10/20/2023 Vitamin D deficiency 10/20/2023 Tobacco abuse 10/20/2023 Intellectual disability 10/20/2023 Social History Tobacco Use Types Packs/Day Years Used Date Smoking Tobacco: Never Smokeless Tobacco: Never Tobacco Cessation:Counseling Given: Not Answered Alcohol Use Standard Drinks/Week Comments Never 0 (1 standard drink = 0.6 oz pur e alcohol) Food Insecurity Answer Date Recorded Food run out past 12 months Not on file 09/29 Food did not last past 12 months Not on file 10/09/2023 Employment Answer Date Recorded Help finding and keeping a job Not on file 0 10/09/2023 Family and Community Support Answer [place] e Recorded Help with Day to Day Activities Not on file 10/09/2023 Feeling Lonely or Isolated Not on file 10/09 Educational Attainment Answer Date Carlos rded Speak language other than Kiswahili at home Not on file 10/09/2023 Want help with school or training Not on file 10/09/2023 Substance Use Answer Date Recorded Used prescription meds for non-medical reasons N ot on file 10/09/2023 Used illegal drugs past 12 months Not on file 10/09/2023 Sex and Gender Information Value Date Recorded Sex Assigned at Not on file 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 DUAL COMPLETE [facility] ADV Advance Directives For more information, please contact: [phone] * Full Code (Latest Code Status on File) Date Activated Date Inactivated Comments 10/22/2023 8:37 AM 10/22/2023 4:03 PM Care Teams Government Auditor Relationship Specialty Start Date End Date Blake Matamoors MD [address] [place] [address] PCP - General Adolescent Medicine 10/20/23
--- OUTSIDE RECORDS SUMMARY | 2025-04-20 18:30 | XMS_ITS | Clinical Summary ---
Author Organization [facility] ([place], [place], [place], [place]) Address [address] [place] [address] Care Team Providers Care Bridge Painter Name Role Phone Blake Matamoros MD Primary Care Provider [phone] Allergies Active Allergy Reactions Criticality Noted Date [...] Date Carlos rded Speak language other than Indonesian at home Not on file 10/09/2023 Want help with school or training Not on file 10/09/2023 Substance Use Answer Date Recorded Used prescription meds for non-medical reasons N ot on file 10/09/2023 Used illegal drugs past 12 months Not on file 10/09/2023 Sex and Gender Information Value Date Recorded Sex Assigned at Not on file 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 Gender Identity Not on file Sexual Orientation [...] 10/20/2023 10:03 AM EST Plan of Treatment Health Maintenance Due Date Last Done Comments Depression Screening (12+) 1992 HIV Screening 12/28/1995 Hepatitis C Screening 1998 Lipid Panel 12/28/2015 COVID-19 VACCINE ( season) 2024 Tobacco Cessation Counseling and Screening (12+) 10/22/2024 10/22/2023 Influenza Vaccine (#1) 2025 11/13/2017, 2014 DTAP/TDAP/TD VACCINES (5 - Td or Tdap) 11/25/2026 11/25/2016, 08/20/2013, 03/10/2012, Additional history exists Pneumococcal Vaccine: 0-49 Years Aged Out No longer eligible based on patient's age to complete this topic Insurance [facility] DUAL COMPLETE [facility] ADV Advance Directives For more information, please contact: [phone] * Full Code (Latest Code Status on File) Date Activated Date Inactivated Comments 10/22/2023 8:37 AM 10/22/2023 4:03 PM Care Teams Bridge Painter Relationship Specialty Start Date End Date Blake Matamoros MD [address] [place] [address] PCP - General Adolescent Medicine 10/20/23
--- OUTSIDE RECORDS SUMMARY | 2025-04-20 18:30 | XMS_ITS | Clinical Summary ---
Author Organization Healthcare Address [address] [id number] Care Team Providers Care Rehabilitation Center Manager Name Role Phone Gilson Hay MD Primary Care Provider [phone] Allergies Active Allergy Reactions Criticality Noted Date Comments Penicillins Other - please docum ent in the comment field Low 09/10/2023 Per pt, makes him sick to his stomach Medications Ventolin HFA 108 (90 Base) MCG/ACT inhaler INHALE 2 PUFFS BY MOUTH EVERY 4 TO 6 HOURS NEEDED DIRECTED Active Encounters Date Type Department Care Team Description 03/29/2025 1:50 PM EDT Consult [facility] Otolaryngology [address] [place] [address] Celeste Perry MD Cholesteatoma of right ear (Primary Dx) 03/29/2025 1:00 PM EDT Office Visit [facility] Audiology [address] [place] [address] Kim Gipson, 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); Conductive hearing loss of left ear with restricted hearing of right ear; Dysfunction of both eustachian tubes 03/29/2025 Travel from Last 3 Months Social History Tobacco Use Types Packs/Day Years [...] Mass Index 32.2 03/29/2025 1:47 PM EDT Plan of Treatment Health Maintenance Due Date Last Done Comments [facility]-Depression Screening 1980 [facility]-HIV Screening 1980 [facility]-Hepatitis C Screening 1980 [facility]-Medicare Annual Wellness (AWV) 1980 [facility]-/Child/Adol SDOH Screenings 1980 [facility]-Varicella Vaccines (1 of 2 - 13+ 2-dose series) 1993 HPV Vaccines (1 - Male 3-dose series) 12/28/1995 [facility]- SDOH Screenings 1998 [facility]-Adult SDOH Screenings 1998 [facility]-Hepatitis B Vaccines (1 of 3 - 19+ 3-dose series) 12/28/1999 [facility]-Pneumococcal Vaccine: Pediatrics (0 to 5 Years) and At-Risk Patients (6 to 49 Years) (1 of 2 - PCV) 12/28/1999 XJI-ZWFCF-12 Vaccine (1 - season) 2024 [facility]-Influenza Vaccine (#1) 05/30/202510/07, 07/02/2024, 09/07/2018, Additional history exists [facility]-DTaP,Tdap,and Td Vaccines (5 - Td or Tdap) 11/25/2026 11/25/2016, 08/20/2013, 03/10/2012, Additional history exists [facility]-Zoster Vaccines (1 of 2) 2030 [facility]-Hepatitis A Vaccines Aged Out 09/07/2018 No longer eligible based on patient's age to complete this topic [facility]-Obesity Intervention Completed 03/29/2025, 0709/2024 [facility]-HIB Vaccines Aged Out No longer e ligible based on patient's age to complete this topic [facility]-IPV Vaccines Aged Out No longer e ligible based on patient's age to complete this topic [facility]-Rotavirus Vaccines Aged Out No lo nger eligible based on patient's age to complete this topic Insurance [place] Care Teams Rehabilitation Center Manager Relationship Specialty Start Date End Date Gilson Hay MD [address] [place] [address] PCP - General 02/09/21
--- OUTSIDE RECORDS SUMMARY | 2025-04-20 18:30 | XMS_ITS | Continuity of Care Document ---
Author Organization [facility], [address] Address [address] [place] [address] Care Team Providers Care Business Operations Coordinator Name Role Phone ROSALIA HARDWICK Primary Care Provider Assessment No assessment recorded. Plan of Treatment Reminders Order Date Submit Date Provider Last Modified By Organization Details Last Modified Time Details Appointments None recorded. Lab culture, bacterial - right ear 2024 025 [facility], [address] [place] [address], [phone], 5 10:40:36 Referral None recorded. Procedures None recorded. Surgeries None recorded. Imaging None recorded. Medication Orders Ciprodex 0.3 %-0.1 % ear drops,susp ension 2024 025 [facility] [address] [place], [address], 5 16:55:39 cefdinir 300 mg capsule 2024 025 [facility] [address] [place], [address], 5 05:02:17 Patient TargetsNo targets recorded. Patient Instructions Encounter Date Encounter Id Patient Instructions Last Modified By Organization Details Last Modified Time 02/25/2025 [id number] 1. Ordered routine culture of ear 2. Rx-ciprofloxacin 0.3 %-dexamethasone 0.1 % ear drops,suspension 3 drops into affected ear(s) BID 3. cefdinir (Omnicef) 300mg Take 1 tablet PO BID X 7days 4. F/u 2 weeks [email or web address] Not available 02/25/2025 16:56:06 right otorrhea, possible perf with granulation tissue on TM will try to get Damon [facility] records start drops and oral antibiotics dry ear precautions culture take, f/u results opposite ear has evidence of long standing ETD likely contributing [email or web address] Not available 02/28/2025 14:02:53 Reason for Referral None Reported. Results Created Date Observation Date Name Description Value Unit Range Abnormal Flag Note LastModifiedBy Organization Detail LastModifiedTime 02/26/20 25 02/25/2025 CULTU RE, ROUTI NE proteus mirabilis Organi sm: Proteu s mirabi lis Not Available [facility] [address] [place] [address], [address], 02/28/2025 09:31:21 02/26/20 25 02/28/2025 CULTU RE, ROUTI NE culture, routine abnormal ISOLA TE #1 Many Proba ble Gram Negat josé Bacil asaf. ID and sensi tivit y in progr ess. See [place] te Resul t(s) Below Prote us mirab ilis Not Available [facility] [address] [place] [address], [address], 02/28/2025 09:31:21 02/26/20 25 02/28/2025 CULTU RE, ROUTI NE amox/K clav'ate(C) <=8/4 ug/mL susceptib le Not Available [facility] [address] [place], [address], 02/28/2025 09:31:21 02/26/20 25 02/28/2025 CULTU RE, ROUTI NE ampicillin <=8 ug/mL susceptib le Not Available [facility] [address] [place], [address], 02/28/2025 09:31:21 02/26/20 25 02/28/2025 CULTU RE, ROUTI NE cefazolin <=2 ug/mL susceptib le Not Available [facility] [address] [place], [address], 02/28/2025 09:31:21 02/26/20 25 02/28/2025 CULTU RE, ROUTI NE ceftazidime <=1 ug/mL susceptib le Not Available [facility] [address] [place] [address], [address], 02/28/2025 09:31:21 02/26/20 25 02/28/2025 CULTU RE, ROUTI NE ceftriaxone <=1 ug/mL susceptib le Not Available [facility] [address] [place] [address], [address], 02/28/2025 09:31:21 02/26/20 25 02/28/2025 CULTU RE, ROUTI NE cefuroxime <=4 ug/mL susceptib le Not Available [facility] [address] [place] [address], [address], 02/28/2025 09:31:21 02/26/20 25 02/28/2025 CULTU RE, ROUTI NE ciprofloxaci n <=0.25 ug/mL susceptib le Not Available [facility] [address] [place] [address], [address], 02/28/2025 09:31:21 02/26/20 25 02/28/2025 CULTU RE, ROUTI NE gentamicin <=4 ug/mL susceptib le Not Available [facility] [address] [place] [address], [address], 02/28/2025 09:31:21 02/26/20 25 02/28/2025 CULTU RE, ROUTI NE levofloxacin <=0.5 ug/mL susceptib le Not Available [facility] [address] [place] [address], [address], 02/28/2025 09:31:21 02/26/20 25 02/28/2025 CULTU RE, ROUTI NE piperacillin /karsten <=16 ug/mL susceptib le Not Available [facility] [address] [place], [address], 02/28/2025 09:31:21 02/26/2002/28/2025 CULTU REENAI NE tobramycin <=2 ug/mL susceptib le Not Available [facility] [address] [place] [address], [address], 02/28/2025 09:31:21 02/26/2002/28/2025 CULTU RE, ROUTI NE trimeth/sulf a <=2/38 ug/mL susceptib le Not Available [facility] [address] [place] [address], [address], 02/28/2025 09:31:21 Result Notes None recorded. Procedures Surgical History Date Name Laterality Status Provider Name and Address Organization Details Recorded Time Binocular Microscopy completed FERN REYNOLDS MD [address] [place] [id number] [place] [address] 03/19/2025 16:16:19 Binocular Microscopy completed FERN REYNOLDS MD [address] [place] [address], [phone] 02/28/2025 14:01:44 Imaging Results None recorded. Procedure [...] Not Available No t Available amoxicillin 875 mg-caro m clavulanate 125 mg tablet Take 1 [...] Last Updated DateTime 175.26 cm 30 kg/m2 88499.2 5 g 97.8 [degF] 83 /min 149/92 mm[Hg] Adela Neumann [facility] 16:13:42 Social History None recorded. Functional Status None recorded. Mental Status None recorded. Family History Nothing Reported. 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 No medical history recorded. Past Encounters Encounter ID Performer Location Encounter Start Date Encounter Closed Date Diagnosis/Indication Diagnosis SNOMED-CT Code Diagnosis ICD10 Code Diagnosis Note [id number] FERN REYNOLDS MD [place] [address] [address] [place] [address] 02/25/2025 15:58:49 02/28/2025 07:38:36 Deviated nasal septum 536485819 J34.2 Otorrhea of right ear 10 68929861 315986 H92.11 Tympanoscl erosis of left middle ear 5789394177 1529673 H74.02 Chronic se gaston otitis media of right ear 872282782 H65.21 Health Concerns Section Related Observation LastModified by Organization Detai ls LastModified Time None Recorded Concern Status LastModified by Organization Details LastModified Time None Recorded Payers Encounter Date Sequence Insurance Name Policy Number Policy Interiano Covered Member ID Interiano Member ID Guarantor Name 02/25/2025 1 [facility] (MEDICARE REPLACEMENT/A DVANTAGE - HMO) SIVAN Wang Junaid [id number] Gilson Felipe Quiroga Notes Date Note Type Note Provider Name and Address Organization Details Recorded Time 02/25/2025 text/html Gilson comes in today for an evaluation of otorrhea.- Hole in the ear, drainage- He has had hearing aids but does not do well with them FERN REYNOLDS MD [address] [place] [address], [phone], [facility] - [facility] 02/28/2025 14:03:03
--- OUTSIDE RECORDS SUMMARY | 2025-04-20 18:30 | XMS_ITS | Encounter Summary ---
Author Organization Healthcare Address [address] [place] [address] Care Team Providers Care Cotton Weigher Name Role Phone Gilson Hay MD Primary Care Provider +1- [phone] Encounter Details Date Type Department Care Team (Latest Contact Info) Description 03/29/2025 Travel Social History Tobacco Use Types Packs/Day Years [...] on file documented as of this encounter Plan of Treatment Not on file documented as of this encounter Visit Diagnoses Not on filedocumented in this encounter Additional Health Concerns Assessment Noted Time A Body Mass Index follow-up plan has been documented for the patient 04/04/2025 2:03 PM EDT documented as of this encounter Care Teams Cotton Weigher Relationship Specialty Start Date End Date Gilson Hay MD [address] [place] [address] PCP - General 02/09/21 documented as of this encounter
--- OUTSIDE RECORDS SUMMARY | 2025-04-20 18:30 | XMS_ITS | Continuity of Care Document ---
Author Organization [facility], [address] Address [address] [place] [address] Care Team Providers Care Cancer Program Director Name Role Phone ROSALIA HARDWICK Primary Care Provider Assessment No assessment recorded. Plan of Treatment Reminders Order Date Submit Date Provider Last Modified By Organization Details Last Modified Time Details Appointments None recorded. Lab None recorded. Referral None recorded. Procedures None recorded. Surgeries None recorded. Imaging None recorded. Medication Orders amoxicillin 875 mg-potassiu m clavulanate 125 mg tablet 2024 025 [facility] [address] [facility], [place], [address], 05:01:54 Patient TargetsNo targets recorded. Patient Instructions Encounter Date Encounter Id Patient Instructions Last Modified By Organization Details Last Modified Time 03/18/2025 [id number] 1. Bilateral Binocular microscopy performed in office [...] tablet every 12 hours for 21 days [email or web address] Not available 03/18/2025 16:01:39 persistent right otorrhea, improved but still there, despite culture directed antibiotics and drops underlying severe ETD bilaterally likely contributing right TM posterior retraction pocket concerning for possible cholesteatoma will send in prolonged antibiotic course and cont ciprodex ggt will refer to neuro/otology to assess surgical candidacy [email or web address] Not available 03/19/2025 16:17:44 Reason for Referral None Reported. Results Created Date Observation Date Name Description Value Unit Range Abnormal Flag Note LastModifiedBy Organization Detail LastModifiedTime 02/26/2002/25/2025 CULTU RE, ROUTI NE proteus mirabilis Organi sm: Proteu s mirabi lis Not Available [facility] [address] [place] [address], [address], 02/28/2025 09:31:21 02/26/20 25 02/28/2025 CULTU RE, ROUTI NE culture, routine abnormal ISOLA TE #1 Many Proba ble Gram Negat josé Bacil asaf. ID and sensi tivit y in progr ess. See [place] te Resul t(s) Below Prote us mirab ilis Not Available [facility] [address] [place] [address], [address], 02/28/2025 09:31:21 02/26/2002/28/2025 CULTU RE, ROUTI NE amox/K clav'ate(C) <=8/4 ug/mL susceptib le Not Available [facility] [address] [place] [address], [address], 02/28/2025 09:31:21 02/26/2002/28/2025 CULTU RE, ROUTI NE ampicillin <=8 ug/mL susceptib le Not Available [facility] [address] [place] [address], [address], 02/28/2025 09:31:21 02/26/2002/28/2025 CULTU RE, ROUTI NE cefazolin <=2 ug/mL susceptib le Not Available [facility] [address] [place] [address], [address], 02/28/2025 09:31:21 02/26/2002/28/2025 CULTU RE, ROUTI NE ceftazidime <=1 ug/mL susceptib le Not Available [facility] [address] [place] [address], [address], 02/28/2025 09:31:21 02/26/20 25 02/28/2025 CULTU RE, ROUTI NE ceftriaxone <=1 ug/mL susceptib le Not Available [facility] [address] [place] [address], [address], 02/28/2025 09:31:21 02/26/20 25 02/28/2025 CULTU RE, ROUTI NE cefuroxime <=4 ug/mL susceptib le Not Available [facility] [address] [place] [address], [address], 02/28/2025 09:31:21 02/26/20 25 02/28/2025 CULTU RE, ROUTI NE ciprofloxaci n <=0.25 ug/mL susceptib le Not Available [facility] [address] [place] [address], [address], 02/28/2025 09:31:21 02/26/20 25 02/28/2025 CULTU RE, ROUTI NE gentamicin <=4 ug/mL susceptib le Not Available [facility] [address] [place] [address], [address], 02/28/2025 09:31:21 02/26/20 25 02/28/2025 CULTU RE, ROUTI NE levofloxacin <=0.5 ug/mL susceptib le Not Available [facility] [address] [place] [address], [address], 02/28/2025 09:31:21 02/26/20 25 02/28/2025 CULTU RE, ROUTI NE piperacillin /karsten <=16 ug/mL susceptib le Not Available [facility] [address] [place] [address], [address], 02/28/2025 09:31:21 02/26/20 25 02/28/2025 CULTU RE, ROUTI NE tobramycin <=2 ug/mL susceptib le Not Available [facility] [address] [place] [address], [address], 02/28/2025 09:31:21 02/26/20 25 02/28/2025 CULTU RE, ROUTI NE trimeth/sulf a <=2/38 ug/mL susceptib le Not Available [facility] [address] [place], [address], 02/28/2025 09:31:21 Result Notes None recorded. Procedures Surgical History Date Name Laterality Status Provider Name and Address Organization Details Recorded Time Binocular Microscopy completed FERN REYNOLDS MD [address] [place] [address], [address], [facility] 03/19/2025 16:16:19 Binocular Microscopy completed FERN REYNOLDS MD [address] [place] [address], [address], [facility] 02/28/2025 14:01:44 Imaging Results None recorded. Procedure [...] Last Updated DateTime 175.26 cm 29.5 kg/m2 17499.6 8 g 97.2 [degF] 106 /min 133/88 mm[Hg] Ann Ji [facility] 15:43:35 Social History None recorded. Functional Status None recorded. Mental Status None recorded. Family History Nothing Reported. 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 No medical history recorded. Past Encounters Encounter ID Performer Location Encounter Start Date Encounter Closed Date Diagnosis/Indication Diagnosis SNOMED-CT Code Diagnosis ICD10 Code Diagnosis Note [id number] MD [place] [facility] [address] [place] [address] 02/25/2025 15:58:49 02/28/2025 07:38:36 Deviated nasal septum 525362799 J34.2 Otorrhea of right ear 10 05114355 065556 H92.11 Tympanoscl erosis of left middle ear 2025848881 8172203 H74.02 Chronic se gaston otitis media of right ear 975216210 H65.21 [id number] MD [address] [place] [address] 03/18/2025 15:29:48 03/18/2025 16:08:54 Deviated nasal septum 627908518 J34.2 Otorrhea of right ear 10 34653984 774938 H92.11 culture with gant sensitive proteus mirabilis Tympanoscl erosis of left middle ear 5923003912 2860061 H74.02 Chronic se gaston otitis media of right ear 938370456 H65.21 Chronic se gaston otitis media of left ear 790810610 H65.22 Health Concerns Section Related Observation LastModified by Organization Detai ls LastModified Time None Recorded Concern Status LastModified by Organization Details LastModified Time None Recorded Payers Encounter Date Sequence Insurance Name Policy Number Policy Interiano Covered Member ID Interiano Member ID Guarantor Name 03/18/2025 1 [facility] (MEDICARE REPLACEMENT/A DVANTAGE - HMO) [id number] Gilson Quiroga [id number] Gilson Quiroga Notes Date Note Type Note Provider Name and Address Organization Details Recorded Time 03/18/2025 text/html Chief Complaint: Otorrhea of Ad (Proteus mirabilis infection) f/uLocation: AdQuality: improved after ciprodex drops and oral abx, but persistsContext:Modify ing Factors: dry ear precautionsAssoc signs/symptoms: FERN REYNOLDS MD [facility] [place], [address], [facility] 03/19/2025 16:17:57
--- NOTE | 2025-04-20 18:35 | CT_ITS ---
PROCEDURE INFORMATION: Exam: CTA Chest With Contrast Exam date and time: 04/20/2025 7:38 PM Age: 44 years old Clinical indication: Pain; Intercostal; Additional info: Bilateral rib pain TECHNIQUE: Imaging protocol: Computed tomographic angiography of the chest with contrast. Exam focused on the arteries. 3D rendering (Not supervised by radiologist): MIP and/or 3D reconstructed images were created by the technologist. Radiation optimization: All CT scans at this facility use at least one of these dose optimization techniques: automated exposure control; mA and/or kV adjustment per patient size (includes targeted exams where dose is matched to clinical indication); or iterative reconstruction. Contrast material: ISOVUE; Contrast volume: 75 ml; Contrast route: INTRAVENOUS (IV); COMPARISON: CR XR RIBS RT MIN 3V W CXR1V 07/06/2024 1:36 PM FINDINGS: Pulmonary arteries: Normal. No pulmonary emboli. Aorta: Unremarkable. No aortic aneurysm. No aortic dissection. Lungs: Unremarkable. No consolidation. No masses. Pleural spaces: Unremarkable. No pneumothorax. No pleural effusion. Heart: Unremarkable. No cardiomegaly. No pericardial effusion. Lymph nodes: Unremarkable. No enlarged lymph nodes. Bones/joints: Unremarkable. No acute fracture. Soft tissues: Unremarkable. IMPRESSION: No acute findings.
--- NOTE | 2025-04-20 18:35 | CT_ITS ---
PROCEDURE INFORMATION: Exam: CT Abdomen And Pelvis With Contrast Exam date and time: 04/20/2025 7:38 PM Age: 44 years old Clinical indication: Abdominal pain; Generalized TECHNIQUE: Imaging protocol: Computed tomography of the abdomen and pelvis with contrast. 3D rendering (Not supervised by radiologist): MIP and/or 3D reconstructed images were created by the technologist. Radiation optimization: All CT scans at this facility use at least one of these dose optimization techniques: automated exposure control; mA and/or kV adjustment per patient size (includes targeted exams where dose is matched to clinical indication); or iterative reconstruction. Contrast material: ISOVUE; Contrast volume: 75 ml; Contrast route: IV; COMPARISON: CT ABDOMEN PELVIS W CON 04/20/2025 7:38 PM FINDINGS: Lungs: Dependent bilateral lung base opacities favor atelectasis. Liver: There is diffuse hypoattenuation of the liver compatible with mild hepatic steatosis. Gallbladder and biliary ducts: Normal. No calcified stones. No ductal dilation. Pancreas: Fatty infiltration of the pancreas is demonstrated without inflammatory changes. Spleen: Normal. No splenomegaly. Adrenal glands: Normal. No mass. Kidneys and ureters: Normal. No hydronephrosis. Stomach and bowel: Unremarkable. No obstruction. No mucosal thickening. Appendix: No evidence of appendicitis. Intraperitoneal space: Unremarkable. No free air. No significant fluid collection. Vasculature: Unremarkable. No abdominal aortic aneurysm. Lymph nodes: Left upper quadrant small bowel thickening with multiple prominent mesenteric nodes measuring greater than 5 mm in short axis can be seen with mild infectious or inflammatory enteritis. Urinary bladder: Unremarkable as visualized. Reproductive: Unremarkable as visualized. Bones/joints: Unremarkable. No acute fracture. Soft tissues: Normal. IMPRESSION: Left upper quadrant small bowel thickening with multiple prominent mesenteric nodes measuring greater than 5 mm in short axis can be seen with mild infectious or inflammatory enteritis.
[2025-04-20 18:36] LABS: Microscopic, Urine URINE MICROSCOPIC (MICROSCOPIC)
[2025-04-20 18:39] LABS: Bilirubin,Urine Negative (Negative); Color,Urine YELLOW (Yellow); Glucose,Urine (UA) Negative (Negative); Ketones,Urine Negative (Negative); Leukocyte Esterase,Urine Negative (Negative); PH,Urine 6.0 (5.0-8.5); Protein,Urine Negative (Negative); Specific Gravity, Urine 1.025 (1.005-1.030); Urobilinogen,Urine 0.2 EU/dl (0.2)
--- NOTE | 2025-04-20 18:43 | ED_ITS ---
<Statement entered by Kourtney Norton DO - 04/21/25 09:04> I was consulted by the CHRISTIANE, and we discussed the complexity of problems being addressed. I approve the treatment and management plan for this patient's care in the emergency department, thus performing a substantial portion of the medical decision making. Kourtney Norton DO Discharge Plan Disposition Patient Disposition: Home, Self-Care Prescriptions Prescriptions: New ondansetron 4 mg tablet,disintegrating 4 mg PO Q8H 5 Days Qty: 15 0RF No Action nystatin 100,000 unit/gram powder 1 applic topical BID albuterol sulfate [Ventolin HFA] 90 mcg/actuation HFA aerosol inhaler 90 mcg inhalation NEEDED PRN (Reason: Asthma) Patient Comments: INHALE 2 PUFFS BY MOUTH EVERY 4 TO 6 HOURS NEEDED DIRECTED fluticasone propionate 110 mcg/actuation HFA aerosol inhaler 110 mcg inhalation DAILY cetirizine 10 mg tablet 10 mg PO DAILY Patient Comments: TAKE 1 TABLET BY MOUTH ONCE DAILY colestipol 1 gram tablet 1 g PO DAILY Patient Comments: TAKE 1 TABLET BY MOUTH TWICE DAILY famotidine 20 mg tablet 20 mg PO BID Patient Comments: TAKE 1 TABLET BY MOUTH TWICE DAILY doxycycline hyclate 100 mg capsule 100 mg PO BID 10 Days Qty: 20 0RF diclofenac sodium [Voltaren] 1 % gel 4 g TOPICAL QID 30 Days Qty: 100 2RF Rx Instructions: apply to single knee, ankle, foot; for foot includes sole/toes/top of foot meloxicam 7.5 mg tablet 7.5 mg PO .COMPLEX Rx Instructions: 7.5 mg orally bid; methocarbamol 500 mg tablet 500 mg PO Q8H Qty: 90 0RF Referrals Follow up/Referrals: Blake Matamoros MD [Primary Care Provider, Internal Medicine] - See instructions Activity Restrictions/Add. Instructions Additional Instructions/Restrictions: Increase fluids and rest. May take Tylenol for pain. Take the Zofran for nausea. Please follow-up with your PCP as needed. Return to ED if pain worsens or does not improve. Clinical Impressions Clinical Impression: Enteritis Instructions Patient Instructions: DI for Acute Abdominal Pain, DI for Enteritis Print Language Print Language: Haitian Discharge ED Provider: Kourtney Norton General Adult HPI General Chief complaint: Abdominal Pain Stated complaint: bilateral rib pain, urinating alot through out the Time Seen by Provider: 04/20/25 18:28 Mode of Arrival: Ambulatory Source of Information: Patient Description of Symptoms (Recalled from ER Triage Doc. by RN): Pt presents with c/o bialter upper quadrant abdominal pain x a couple weeks. Pt states he is having increased urination. Pt states he feels like abdomen is swollen History of Present Illness HPI narrative: 44-year-old male presents to the ED with complaint of bilateral rib pain that started yesterday. Increased urination that started today and abdominal pain that has been going on for couple weeks. States that he feels like his abdomen is swollen. He says it is tender all over. He denies pain with breathing. He says it is slightly tender with palpation. Denies any recent fevers, chills, nausea or vomiting.. He takes medication only for high cholesterol. He has history of sleep apnea, chronic knee pain several Ortho problems. He also has some history of chest wall discomfort and abdominal pain. These are very nonspecific problems listed in his problem list. Related Data Home Medications ?Medication ?Instructions ?Recorded ?Confirmed meloxicam 7.5 mg tablet 7.5 mg PO .COMPLEX 02/06/23 09/14/24 nystatin 100,000 unit/gram topical 1 applic topical BI D 07/31/23 09/14/24 powder albuterol sulfate 90 mcg/actuation 90 mcg inhalation A S NEEDED PRN 05/06/24 09/14/24 aerosol inhaler (Ventolin HFA) Asthma cetirizine 10 mg tablet 10 mg PO DAILY 05/06/2408/29 fluticasone propionate 110 110 mcg inhalation DAILY 09/14/24 mcg/actuation HFA aerosol inhaler colestipol 1 gram tablet 1 g PO DAILY 06/22/24 famotidine 20 mg tablet 20 mg PO BID 07/28/24 Previous Rx's ?Medication ?Instructions ?Recorded diclofenac sodium 1 % topical gel 4 g topical QID pain 30 days #100 12/19/20 (Voltaren) grams methocarbamol 500 mg tablet 500 mg PO Q8H #90 tabs 05/22 doxycycline hyclate 100 mg capsule 100 mg PO BID 10 da ys #20 caps 09/14/24 ondansetron 4 mg disintegrating 4 mg PO Q8H 5 days #15 tabs 04/20/25 tablet Allergies Allergy/AdvReac Type Severity Reaction Status Date / Time Penicillins Allergy Rash Verified 10/26/24 08:31 [facility] Disclaimer: The information contained in this section may have been updated after the patient was seen, as this information can be updated by other users. 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 Ear drainage right Right ear pain Severe sleep apnea Acute right otitis media Ear drainage right clear with an odor Asthma Flat foot Allergies Intellectual disability Congenital, sister is reportedly primary caregiver since the of their parents 5-6 years ago, denies established power of privacy attorney/guardianship. Surgical History History of colonoscopy History of foot surgery Hx of hand surgery left Family History Sister Anemia Asthma Thyroid disorder Mother Anemia Father Anemia Hypertension Kidney disease Other Coronary artery disease Diabetes Heart attack Stroke Social History Smoking Status: Current every day smoker tobacco type: cigarettes packs per day: 1 alcohol intake: never substance use type: denies use current occupational status: employed Travel in the last 8 weeks?: None household members: family caffeine: No Have you lived/traveled outside [place] in past 30 days?: No Contact w/someone who lives/traveled outside US past 30 days?: No Exposure to someone with infectious disease in past 14 days?: No Do you have a fever (greater than 100.4 F or 38 C)?: No Have you tested positive for COVID-19?: No Exposed to someone with COVID-19 in past 14 days?: No Do you have a sore throat?: No Do you have a cough?: No Do you have any weakness?: No Do you have any diarrhea?: No Are you experiencing any unusual bleeding?: No Do you have any muscle aches/pain?: No Do you have any abdominal pain?: No Are you experiencing loss of taste or smell?: No Other 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 Have you received the Flu Vaccine for this season: No Have you received the Pneumonia Vaccine: No ROS Obtained: Yes Systems reviewed as appropriate & no additional complaints except as documented Constitutional Constitutional: Reports as per HPI Physical Exam General General appearance: alert Head Head exam: normocephalic Eye Eye exam: Present PERRL and EOMI ENT ENT exam: Present normal oropharynx and mucous membranes moist Neck Neck exam: Present full ROM and trachea midline Respiratory Respiratory exam: Present normal lung sounds bilaterally Cardiovascular Cardiovascular exam: Present normal rhythm, tachycardia, normal heart sounds, +S1 and +S2 Abdominal Exam Abdominal exam: Present soft, distention, tenderness and normal bowel sounds Abdominal tenderness: Present diffuse exam: Present normal inspection Extremities Exam Extremities exam: Present full ROM and normal capillary refill Neurological Exam Neurological exam: Present alert and oriented X3 Skin Skin exam: Present warm, dry and intact Medical Decision Making Medical Records Screening: Per USPSTF and CDC recommendations, given the prevalence of disease in our region, it is our hospital?s policy to screen for HIV and viral Hepatitis for all patients aged 18 and over and those with ongoing risk factors. Marco Inquiry Pt receiving controlled substance: No Macro was queried for this patient: No Vital Signs: 04/20/25 18:22 04/20/25 18:26 04/20/25 19:00 Temperature 98.1 F 98.1 F Temperature Source Oral Oral Pulse Rate 106 H 91 H Pulse Rate [Right] 106 H Respiratory Rate 18 18 Blood Pressure 146/86 H 129/73 Blood Pressure [Right Arm] 146/86 H Blood Pressure Mean [Right Arm] 106 Blood Pressure Source Automatic Cuff Blood Pressure Source [Right Arm] Automatic Cuff Blood Pressure Position Supine Blood Pressure Position [Right Arm] Sitting 02 Sat by Pulse Oximetry 96 96 95 Oxygen Delivery Method Room Air Room Air Room Air 04/20/25 19:15 04/20/25 19:30 04/20/25 20:00 Temperature Temperature Source Pulse Rate 89 90 79 Pulse Rate [Right] Respiratory Rate Blood Pressure 132/85 127/69 121/71 Blood Pressure [Right Arm] Blood Pressure Mean [Right Arm] Blood Pressure Source Blood Pressure Source [Right Arm] Blood Pressure Position Blood Pressure Position [Right Arm] 02 Sat by Pulse Oximetry 97 96 97 Oxygen Delivery Method Room Air Room Air Room Air 04/20/25 20:15 04/20/25 20:30 04/20/25 21:23 Temperature 97.9 F Temperature Source Pulse Rate 83 79 79 Pulse Rate [Right] Respiratory Rate 20 Blood Pressure 135/75 118/73 109/67 L Blood Pressure [Right Arm] Blood Pressure Mean [Right Arm] Blood Pressure Source Blood Pressure Source [Right Arm] Blood Pressure Position Blood Pressure Position [Right Arm] 02 Sat by Pulse Oximetry 96 97 Oxygen Delivery Method Room Air Room Air Room Air Lab Data Lab Results 04/20/25 18:27: Urine Color Yellow, Urine Appearance Clear, Urine pH 6.0, Ur Specific [place] 1.025, Urine Protein Negative, Urine Glucose (UA) Negative, Urine Ketones Negative, Urine Blood Trace-i, Urine Nitrate Negative, Urine Bilirubin Negative, Urine Urobilinogen 0.2, Ur Leukocyte Esterase Negative, Urine RBC 5-10, Urine WBC Occasional, Ur Squamous Epith Cells Occasional, Urine Bacteria Trace, Urine Mucus 4+ 04/20/25 18:41: WBC 8.5, RBC 4.93, Hgb 15.0, Hct 44.9, MCV 91.1, MCH 30.4, MCHC 33.4, RDW 12.7, Plt Count 245, MPV 10.6 H, Neut % (Auto) 60.5, Lymph % (Auto) 31.2, [place] % (Auto) 7.1, Eos % (Auto) 0.7, Baso % (Auto) 0.1, Neut # (Auto) 5.1, Lymph # (Auto) 2.6, [place] # (Auto) 0.6, Eos # (Auto) 0.1, Baso # (Auto) 0.0, Sodium 141, Potassium 3.9, Chloride 105, Carbon Dioxide 29, Anion Gap 10.9, BUN 14, Creatinine 0.80, Estimated Creat Clear 150, Estimated GFR 105, Est GFR ( Amer) 127, Glucose 123 H, Calcium 10.1, Magnesium 1.7, Total Bilirubin 1.0, AST 38, ALT 14, Alkaline Phosphatase 117, Troponin I < 0.01, Total Protein 8.5 H, Albumin 4.8, Globulin 3.7 H, Albumin/Globulin Ratio 1.3, Lipase 48 04/20/25 18:41 04/20/25 18:41 Orders (Tests/Meds): ED MEDICATIONS Discontinued Medications Generic Name Dose Route Start Last Admin Trade Name Freq PRN Reason Stop Dose Admin Acetaminophen 1,000 mg 04/20/25 18:39 04/20/25 18:50 Acetaminophen 1,000mg/100ml Vial IV 04/20/25 18:40 1,000 mg ONCE ONE Administration Iopamidol 85 ml 04/20/25 19:45 04/20/25 19:46 Iopamidol-370 (76%);100ml Bottle IV 04/20/25 19:46 85 ml ONCE ONE Administration Ketorolac Tromethamine 30 mg 04/20/25 18:39 04/20/25 18:50 Ketorolac 30mg/Ml Vial IV 04/20/25 18:40 30 mg ONCE ONE Administration Sodium Chloride 50 ml 04/20/25 19:45 04/20/25 19:46 0.9 % Sodium Chloride 50 Ml Vial IV 04/20/25 19:46 50 ml ONCE ONE Administration Sodium Chloride 10 ml 04/20/25 19:45 04/20/25 19:46 Sodium Chloride 0.9% 10ml Syr (Rad Only) IV 04/20/25 19:46 10 ml ONCE ONE Administration ORDERS Category Date Time Status CT abdomen pelvis w con Stat Cat Scan 04/20/25 18:[address] angio chest PE protocol Stat Cat Scan 04/20/25 18:35 Completed CBC [Complete Blood Count Auto Diff] Stat Lab 04/20/25 18:41 Completed Comprehensive Metabolic Panel Stat Lab 04/20/25 18:41 Completed Lipase Stat Lab 04/20/25 18:41 Completed Magnesium Stat Lab 04/20/25 18:41 Completed Trop I [Troponin I] Stat Lab 04/20/25 18:41 Completed Urinalysis and Microscopic Stat Lab 04/20/25 18:27 Completed Medical Decision Narrative: patient is a 44-year-old male presenting to the emergency department for evaluation of bilateral rib pain, abdominal swelling since yesterday. Patient is hemodynamically stable and nontoxic-appearing upon arrival, afebrile. Differential diagnosis includes gastritis, enteritis, kidney stone, costochondritis, PE, rib fractures among others. Workup will be conducted with hematologic labs, specific imaging. Initial inventions include crystalloid bolus, analgesics. Initial workup reviewed by me hematologic labs are remarkable for normal white count, normal labs. Imaging informally interpreted by me and remarkable for no abdominal pathology or chest pathology. Formal imaging read remarkable for enteritis. Upon repeat evaluation patient's pain is improved. Discussed discharge plan with patient. Also discussed with Dr. Norton. Is safe for discharge home. Critical Care Critical Care Time Critical Care Time: No
[2025-04-20] MEDS: KETOROLAC 30MG/ML VIAL 30 MG IV (18:50)
[2025-04-20] MEDS: ACETAMINOPHEN 1,000MG/100ML VIAL 1000 MG IV (18:50)
[2025-04-20 18:51] LABS: Hematocrit 44.9 % (42.0-52.0); Hemoglobin 15.0 g/dL (14.1-18.0); Immature Granulocytes % 0.4 %; Mean Corpuscular HGB Conc 33.4 g/dL (31.8-35.4); Mean Corpuscular Hemoglobin 30.4 pg (27.0-31.2); Mean Corpuscular Volume 91.1 fl (80-94); Nucleated Red Blood Cells % 0 %; Platelet Count 245 K/mm3 (142-424); Red Blood Count 4.93 M/mm3 (4.60-6.20); Red Cell Distribution Width-SD 42.2 fL; White Blood Count 8.5 K/mm3 (4.8-10.8)
--- NOTE | 2025-04-20 18:51 | ECG_ITS ---
APPROVED REPORT Exam: Resting ECG HR:91 bpm ECG Measurements Heart Rate 91 AXES PA 133 P 38 QRSd 87 QRS 66 QT 339 T 28 QTc 388 Conclusion Normal sinus rhythm without acute ST or T wave changes concerning for ischemia Electronically signed by : Kourtney Norton, 04/21/2025 00:49:33
--- NOTE | 2025-04-20 18:52 | PC.NURSE ---
Patient administered medication verified via bracelet, allergies also verified
[2025-04-20 19:03] LABS: Bacteria,Urine Trace /lpf; Squamous Epithelial Cell,Urine Occasional #/hpf (0-5); WBC,Urine Occasional #/hpf (0-3)
[2025-04-20 19:04] LABS: Mucus,Urine 4+ /lpf
[2025-04-20 19:17] LABS: Alanine Aminotransferase 14 U/L (12-78); Albumin Level 4.8 g/dl (3.5-5.0); Albumin/Globulin Ratio 1.3 (1.1-1.8); Alkaline Phosphatase 117 U/L (38-126); Anion Gap 10.9 mEq/L (5-15); Aspartate Amino Transferase 38 U/L (17-59); Bilirubin,Total 1.0 mg/dl (0.2-1.3); Blood Urea Nitrogen 14 mg/dl (9-20); Calcium 10.1 mg/dl (8.4-10.2); Carbon Dioxide 29 mmol/L (22.0-30.0); Chloride 105 mmol/L (98-107); Creatinine Clearance Estimated 150 mL/min (50-200); Creatinine,Serum 0.80 mg/dl (0.66-1.25); Estimated Glomerular Filt Rate 105 ml/min (>60); GFR (African American) 127 ML/MIN (>60); Globulin 3.7 g/dL (1.3-3.2); Glucose 123 mg/dl (74-100); Lipase 48 U/L (23-300); Magnesium 1.7 mg/dl (1.6-2.3); Potassium 3.9 mmoL/L (3.5-5.1); Sodium 141 mmol/L (136-145); Total Protein,Serum 8.5 g/dl (6.3-8.2)
--- NOTE | 2025-04-20 19:19 | PC.NURSE ---
This RN takes over care for patient.
[2025-04-20 19:33] LABS: Troponin I < 0.01 ng/ml (0.00-0.034)
[2025-04-20] MEDS: SODIUM CHLORIDE 0.9% 10ML SYR (RAD ONLY) 10 ML IV (19:46)
[2025-04-20] MEDS: 0.9 % SODIUM CHLORIDE 50 ML VIAL IV (19:46)
[2025-04-20] MEDS: IOPAMIDOL-370 (76%);100ML BOTTLE 85 ML IV (19:46)
== END 2025-04-20 21:25 | disposition home or self-care (01) ==
PROVIDERS: Nurse Practitioner; Emergency Provider Student in an Organized Health Care Education/Training Program; PCP Internal Medicine Adolescent Medicine
DX: R10.84 Generalized abdominal pain (principal); R07.89 Other chest pain; K52.9 Noninfective gastroenteritis and colitis, unspecified
CPT/HCPCS: 71275; 74177; 80053; 81001; 83690; 83735; 84484; 85025; 93005; 96374; 96375; 99285; J0131; J1885; Q9967

== ENCOUNTER 2025-06-21 10:37 | Outpatient (CLI) | payer MEDICARE, MEDICAID, SELFPAY ==
--- NOTE | 2025-06-21 10:30 | US_ITS ---
FINAL REPORT TECHNIQUE: Sonographic images of the right upper quadrant were obtained. CLINICAL HISTORY: Fatty liver FINDINGS: PANCREAS: Obscured. LIVER: Homogeneous. No focal hepatic lesion. No intrahepatic biliary ductal dilatation. GALLBLADDER: No gallstones. No gallbladder wall thickening or pericholecystic fluid. COMMON DUCT: 3 mm. Normal for age. RIGHT KIDNEY: The right kidney measures 9.6 cm. There is no hydronephrosis, mass, or stone. FREE FLUID: None. IMPRESSION: Unremarkable ultrasound of the right upper quadrant. Reviewed, Interpreted and Dictated by Hayde Connors MD Transcribed by Lorenza Santana Authenticated and . [facility]
[2025-06-21 12:20] LABS: Albumin Level 4.5 g/dl (3.5-5.0); Chloride 102 mmol/L (98-107)
[2025-06-21 12:21] LABS: Potassium 4.5 mmoL/L (3.5-5.1); Sodium 141 mmol/L (136-145)
[2025-06-21 12:23] LABS: Alanine Aminotransferase 11 U/L (12-78); Anion Gap 12.5 mEq/L (5-15); Aspartate Amino Transferase 27 U/L (17-59); Blood Urea Nitrogen 14 mg/dl (9-20); Carbon Dioxide 31 mmol/L (22.0-30.0); Creatinine,Serum 0.70 mg/dl (0.66-1.25); Estimated Glomerular Filt Rate 123 ml/min (>60); GFR (African American) 148 ML/MIN (>60)
[2025-06-21 12:24] LABS: Albumin/Globulin Ratio 1.6 (1.1-1.8); Alkaline Phosphatase 118 U/L (38-126); Bilirubin,Total 0.6 mg/dl (0.2-1.3); Calcium 8.9 mg/dl (8.4-10.2); Globulin 2.8 g/dL (1.3-3.2); Glucose 115 mg/dl (74-100); Total Protein,Serum 7.3 g/dl (6.3-8.2)
[2025-06-25 06:15] LABS: ALT (SGPT) P5P 11 IU/L (0-55); AST (SGOT) P5P 25 IU/L (0-40); Alpha 2-Macroglobulins, Qn 151 mg/dL (110-276); Bilirubin, Total 0.3 mg/dL (0.0-1.2); Cholesterol, Total 136 mg/dL (100-199); GGT 15 IU/L (0-65); Glucose 109 mg/dL (70-99); Triglycerides 149 mg/dL (0-149)
== END 2025-06-21 23:59 | disposition home or self-care (01) ==
LOC: RAD 10:38
PROVIDERS: PCP Internal Medicine Adolescent Medicine; Visit Provider Nurse Practitioner Family
DX: K76.0 Fatty (change of) liver, not elsewhere classified (principal)
CPT/HCPCS: 36415; 76705; 80053; 82172; 82247; 82465; 82947; 82977; 83010; 83521; 84450; 84460; 84478

== ENCOUNTER 2025-09-07 15:20 | Outpatient (CLI) | payer MEDICARE, MEDICAID, SELFPAY ==
[2025-09-07 16:55] LABS: Alanine Aminotransferase 12 U/L (12-78); Albumin Level 4.2 g/dl (3.5-5.0); Albumin/Globulin Ratio 1.4 (1.1-1.8); Alkaline Phosphatase 118 U/L (38-126); Anion Gap 14.2 mEq/L (5-15); Aspartate Amino Transferase 25 U/L (17-59); Bilirubin,Total 0.4 mg/dl (0.2-1.3); Blood Urea Nitrogen 10 mg/dl (9-20); Calcium 8.9 mg/dl (8.4-10.2); Carbon Dioxide 30 mmol/L (22.0-30.0); Chloride 105 mmol/L (98-107); Creatinine,Serum 0.70 mg/dl (0.66-1.25); Estimated Glomerular Filt Rate 123 ml/min (>60); GFR (African American) 148 ML/MIN (>60); Globulin 3.0 g/dL (1.3-3.2); Glucose 74 mg/dl (74-100); Potassium 4.2 mmoL/L (3.5-5.1); Sodium 145 mmol/L (136-145); Total Protein,Serum 7.2 g/dl (6.3-8.2)
== END 2025-09-07 23:59 | disposition home or self-care (01) ==
LOC: LAB 15:21
PROVIDERS: PCP Internal Medicine Adolescent Medicine; Visit Provider Nurse Practitioner Family
DX: K76.0 Fatty (change of) liver, not elsewhere classified (principal)
CPT/HCPCS: 36415; 80053